=== PATIENT | male | born 1990 | race Two or more races ===

== ENCOUNTER 2019-05-14 20:52 | Inpatient (IN) | payer MEDICAID ==
[~2019-05-14] VITALS: Ht 165.1 cm; Wt 67.5 kg
[2019-05-14] MEDS ORDERED: ETOMIDATE (2MG/ML) 20ML VIAL IV ONE ×2 (21:00→21:15)
[2019-05-14] MEDS ORDERED: SUCCINYLCHOLINE CHLORIDE 20 MG/ML 10ML VIAL IV ONE ×2 (21:00→21:15)
[2019-05-14] MEDS ORDERED: PROPOFOL 100 ML IV ONE (21:10)
[2019-05-14] MEDS ORDERED: VANCOMYCIN PER PHARMACY 0 MG IV SCH (21:15)
[2019-05-14] MEDS ORDERED: MIDAZOLAM HCL 5 MG/ML-1ML VIAL IV ONE (21:15)
[2019-05-14] MEDS ORDERED: ACETAMINOPHEN 650 MG RECT SUPP PR ONE (21:15)
[2019-05-14] MEDS ORDERED: PIPERACILLIN-TAZOB 3.375GM 100 ML IV ONE (21:15)
[2019-05-14] MEDS ORDERED: MIDAZOLAM HCL 5 MG/ML-1ML VIAL ONE (21:17)
[2019-05-14] MEDS: PROPOFOL 100 ML IV SCH (21:24)
[2019-05-14] MEDS: NOREPINEPHRINE 8 MG/250ML KIT 250 ML IV SCH (21:30)
[2019-05-14 21:31] LABS: Basophils # (auto) 0 uL; Basophils % (auto) 0.1 % (0.0-2.0); Eosinophils # (auto) 0 uL; Eosinophils % (auto) 0.1 % (0.0-7.0); Hematocrit 49.7 % (41.0-53.0); Hemoglobin 16.4 g/dL (13.5-17.5); Lymphocytes # (auto) 0.8 uL; Lymphocytes % (auto) 5.7 % (10.0-50.0); Mean Corpuscular Hemoglobin 33.2 pg (28.0-32.0); Mean Corpuscular Hgb Conc. 33.1 g/dL (32.0-36.0); Mean Corpuscular Volume 100.4 fL (80.0-100.0); Monocytes # (auto) 0.4 uL; Monocytes % (auto) 2.7 % (0.0-12.0); Neutrophils # (auto) 12.9 uL; Neutrophils % (auto) 91.4 % (37.0-80.0); Nucleated Red Blood Cells % 0.1 %; Platelet Count (auto) 153 10^3/uL (140-450); Red Blood Cells 4.95 10^6/uL (4.5-5.90); Red Cell Distribution Width 13.3 % (11.8-14.3); White Blood Cell 14.1 10^3/uL (4.4-10.8)
[2019-05-14] MEDS ORDERED: VANCOMYCIN 1GM/250ML 250 ML IV ONE (21:45)
[2019-05-14 21:46] LABS: INR 1.24 (0.9-1.15)
[2019-05-14 21:51] LABS: Calcium 6.1 mg/dL (8.5-10.1); Potassium 4.7 mmol/L (3.5-5.1)
[2019-05-14 21:55] LABS: Lactic Acid w/Reflex 3.5 mmol/L (0.4-2.0)
[2019-05-14 22:00] VITALS: BP 115/63
[2019-05-14] MEDS ORDERED: SODIUM CHLORIDE 0.9% 3,000 ML IV ONE (22:00)
[2019-05-14 22:09] LABS: Amphetamine Screen, Urine POSITIVE (NEGATIVE); Barbiturate Scree,Urine NEGATIVE (NEGATIVE); Benzodiazephine Screen, Urine NEGATIVE (NEGATIVE); Cannabinoid Screen, Urine NEGATIVE (NEGATIVE); Cocaine Screen, Urine NEGATIVE (NEGATIVE); Opiate Scree,Urine NEGATIVE (NEGATIVE); Phencyclidine Screen, Urine NEGATIVE (NEGATIVE)
[2019-05-14] MEDS: MIDAZOLAM DRIP 50 mg/50mL 50 ML IV SCH (22:16)
[2019-05-14 22:18] LABS: Urine Amorphous Crystal FEW /hpf (None Seen); Urine Bacteria NONE SEEN /hpf (None Seen); Urine Blood 2+ /uL (Negative); Urine Specific Gravity 1.017 (1.001-1.035); Urine WBC 1 /hpf (0 - 3)
[2019-05-14] MEDS ORDERED: SODIUM CHLORIDE 0.9% 1,000 ML IV ONE ×2 (22:45→23:00)
[2019-05-14] MEDS ORDERED: MORPHINE SULF INJ 2 MG/ML SYRINGE 1ML IV PRN (23:00)
[2019-05-14] MEDS ORDERED: NITROGLYCERIN 0.4 MG SL TAB SL PRN (23:00)
[2019-05-14] MEDS ORDERED: SODIUM BICARBONATE 8.4 % INJ 50ML VIAL IV ONE (23:00)
[2019-05-14] MEDS ORDERED: ONDANSETRON HCL 4 MG/2 ML VIAL IV PRN (23:00)
[2019-05-14 23:13] LABS: Albumin 3.3 g/dL (3.4-5.0)
[2019-05-14 23:22] LABS: Bilirubin, Total 0.4 mg/dL (0.2-1.0); Total Protein 6.4 g/dL (6.4-8.2)
[2019-05-14 23:39] LABS: Bilirubin, Direct 0.2 mg/dL (0-0.2)
[2019-05-14] MEDS: D5W/SOD CHLO 0.9% 1,000 ML IV SCH (23:58)
[2019-05-15] VITALS (103 sets, daily range): BP systolic 95–136; BP diastolic 38–90
[2019-05-15] MEDS ORDERED: ASPirin 325 MG TAB PO ONE (00:15)
--- NOTE | 2019-05-15 00:21 | NUR ---
REPORT TAKEN FROM TIM ARMSTRONG
[2019-05-15] MEDS ORDERED: CALCIUM GLUC 4.65meq/50ml D5AE 50 ML IV ONE ×3 (00:45→16:30)
--- NOTE | 2019-05-15 00:45 | NUR ---
RT NOTE: PT TRANSPORTED TO ICU VIA AMBU BAG AND O2 TANK, MONITORS IN PLACE. PT PLACED BACK ON VENT WITHOUT INCIDENT. VENT PLUGGED INTO RED OUTLET WITH ALARMS SET AND AUDIBLE.
[2019-05-15] MEDS: MIDAZOLAM DRIP 50 mg/50mL 50 ML IV SCH (00:50)
[2019-05-15] MEDS: PROPOFOL 100 ML IV SCH (00:50)
--- NOTE | 2019-05-15 00:50 | NUR ---
INITIAL CONTACT ASSUMED CARE OF PATIENT PATIENT APPEARS TO BE RESTING IN BED COMFORTABLY IN SEMI-FOWLERS POSITION AT THIS TIME. PATIENT IS INTUBATED AND SEDATED ON PROPOFOL AT 50 AND VERSED AT 15. PIN POINT PUPILS, NOTED. CENTRAL LINE TO LEFT IJ. 20 G IV LFT UPPER ARM, 18 G IV TO RIGHT A/C, 14 G IV TO LEFT A/C, 20 G IV TO RIGHT WRIST. IV'S WERE FLUSHED W/NS, PATENT, INTACT AND ASYMPTOMATIC. PATIENT IS AFEBRILE. THORNTON CATHETER IN TACT AND DRAINING TO GRAVITY. NO S/S OF DISTRESS NOTED. VITAL SIGNS WITHIN NORMAL LIMITS. VENTILATOR PLUGGED INTO RED OUTLET PER VAP/PROTOCOL, AMBU BAG AT BEDSIDE. PATIENT IS IN FULL VIEW OF NURSES STATION SAFETY MAINTAINED, WILL CONTINUE TO MONITOR. NO FAMILY AT BEDSIDE
[2019-05-15] MEDS ORDERED: CLOPIDOGREL 300 MG TAB NG ONE (01:00)
[2019-05-15] MEDS ORDERED: SODIUM BICARBONATE 50ML VIAL 100 ML in D5W/SOD CHL 0.45% 1,000 ML IV SCH (01:00)
--- NOTE | 2019-05-15 02:08 | NUR ---
Visitors came to ER and stated possible name of patient as Marco Antonio Browning however (per hot car charger) doesn't know if that is his correct name or how to spell it. 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 Advised admitting to leave patient as VINCENZO FORRESTER until we can confirm identity.
[2019-05-15 02:42] LABS: Basophils # (auto) 0 uL; Basophils % (auto) 0.4 % (0.0-2.0); Eosinophils # (auto) 0 uL; Eosinophils % (auto) 0.3 % (0.0-7.0); Hematocrit 44.1 % (41.0-53.0); Hemoglobin 14.7 g/dL (13.5-17.5); Lymphocytes # (auto) 0.7 uL; Lymphocytes % (auto) 7.6 % (10.0-50.0); Mean Corpuscular Hemoglobin 33.1 pg (28.0-32.0); Mean Corpuscular Hgb Conc. 33.3 g/dL (32.0-36.0); Mean Corpuscular Volume 99.5 fL (80.0-100.0); Monocytes # (auto) 0.2 uL; Monocytes % (auto) 1.5 % (0.0-12.0); Neutrophils # (auto) 8.9 uL; Neutrophils % (auto) 90.2 % (37.0-80.0); Nucleated Red Blood Cells % 0.2 %; Platelet Count (auto) 94 10^3/uL (140-450); Red Blood Cells 4.43 10^6/uL (4.5-5.90); Red Cell Distribution Width 13.1 % (11.8-14.3); White Blood Cell 9.9 10^3/uL (4.4-10.8)
[2019-05-15 03:08] LABS: Albumin 2.7 g/dL (3.4-5.0); BUN/Creatinine Ratio 10.3; Potassium 4.5 mmol/L (3.5-5.1)
[2019-05-15 03:17] LABS: Bilirubin, Total 0.5 mg/dL (0.2-1.0); Total Protein 5.3 g/dL (6.4-8.2)
[2019-05-15 03:19] LABS: Calcium 5.7 mg/dL (8.5-10.1)
[2019-05-15] MEDS ORDERED: SODIUM BICARBONATE 8.4 % INJ 50ML VIAL IV ONE ×2 (03:39→04:45)
[2019-05-15 04:39] LABS: INR 1.24 (0.9-1.15); Partial Thromboplastin Time 29.1 sec (23.64-32.05)
[2019-05-15] MEDS: PIPERACILLIN-TAZOB 2.25GM 50 ML IV SCH ×3 (06:58→21:58)
--- NOTE | 2019-05-15 07:54 | NUR ---
Opening shift note: Report received from TIM Lamar. Patient with IVF -no sedation required. See Interventions for detailed assessment.
[2019-05-15] MEDS ORDERED: ENOXAPARIN SOD 100 MG/1 ML SYRINGE SC SCH (10:00)
[2019-05-15] MEDS ORDERED: CLOPIDOGREL BISULFATE 75 MG TAB NG SCH ×2 (10:00)
[2019-05-15] MEDS: D5W/SOD CHLO 0.9% 1,000 ML IV SCH (10:07)
--- NOTE | 2019-05-15 10:45 | NUR ---
Dr. Su at bedside: Order echo and EKG. Addendum: 05/15/19 at 1738 by Consuelo Villafuerte RN Possible cath in the future if patient stabilizes.
--- NOTE | 2019-05-15 11:00 | NUR ---
Dr. David at bedside: Spoke with patients co-workers at bedside- they updated him with some patient details, patient name and date of . Ordered another troponin, CVP line.
[2019-05-15] MEDS: ENOXAPARIN SOD 80 MG/0.8ML SYRINGE SC SCH (11:02)
--- NOTE | 2019-05-15 11:27 | NUR ---
EKG performed - patient ST.
--- NOTE | 2019-05-15 11:29 | NUR ---
Dr. Medina at bedside: Urine CR, NA, phos, albumin, D5W w/2 amps of bicarb at 150mls/hr ordered for patient.
--- NOTE | 2019-05-15 11:36 | NUR ---
Urine sent to lab. Signed: 05/15/19 at 1756 by Consuelo Villafuerte RN
[2019-05-15] MEDS ORDERED: SODIUM BICARBONATE 8.4% INJ 50ML SYRINGE ONE (11:40)
--- NOTE | 2019-05-15 11:40 | NUR ---
Dr. Peck at bedside: AM labs ordered, assessed patient at bedside.
[2019-05-15] MEDS: SODIUM BICARBONATE 50ML VIAL 100 ML in D5W 5% 1,000 ML IV SCH ×3 (12:00→21:57)
[2019-05-15 12:20] LABS: Protein, Urine 206.8 mg/dL (0.0-11.9)
--- NOTE | 2019-05-15 12:45 | NUR ---
Sacral pictures taken, bruise noted.
[2019-05-15 12:50] LABS: Magnesium 2.1 mg/dL (1.6-2.6); Phosphorus 4.4 mg/dL (2.5-4.90)
--- NOTE | 2019-05-15 12:54 | NUR ---
[facility] updated on patients status.
--- NOTE | 2019-05-15 13:40 | NUR ---
Spoke with patients sister: Yudelka Sandhujo Watkins The only history patient has is the whooping cough as a child.
--- NOTE | 2019-05-15 13:46 | NUR ---
Spoke with patients partner in [place]: Christian Zayas Updated her on patients poor prognosis, told her MD's are running more test to let her know more on patients condition. Partner is on her way from [place].
--- NOTE | 2019-05-15 14:52 | NUR ---
Dr. Fajardo at bedside- patient assessed.
[2019-05-15] MEDS: CLINDAMYCIN 600MG IV 50 ML IV SCH ×2 (15:25→21:39)
[2019-05-15] MEDS: ALBUMIN 25% 100 ML IV SCH ×2 (15:29→20:20)
--- NOTE | 2019-05-15 16:15 | NUR ---
Dr. Bowens at bedside: CXR, ABG in the am.
[2019-05-15] MEDS ORDERED: ALBUMIN 25% 100 ML IV ONE ×2 (16:26→16:30)
--- NOTE | 2019-05-15 17:59 | NUR ---
Dr. Coronado at bedside: Another CT head ordered for the morning at 0700.
--- NOTE | 2019-05-15 19:00 | NUR ---
OPENING SHIFT NOTE ASSUMED CARE, LAYING ON BED ON VENT WITH NO SEDATION, STILL NOT AWAKE AT THIS TIME, OGT CONNECTED TO LIS, THORNTON CATHETER DRAINING TO A PALE YELLOW URINE, SCD'S TO BOTH LEGS, BED IN LOWEST POSITION WITH SIDE RAILS UP, BED ALARM ON. WILL CONTINUE CARE.
--- NOTE | 2019-05-15 19:26 | NUR ---
Endorsed care to TIM Hyde.
[2019-05-15] MEDS: NOREPINEPHRINE 8 MG/250ML KIT 250 ML IV SCH (21:30)
--- NOTE | 2019-05-15 21:30 | NUR ---
FRIENDS AT BEDSIDE
[2019-05-15] MEDS: METOPROLOL TARTRATE 25 MG TAB PO SCH (21:58)
--- NOTE | 2019-05-15 22:00 | NUR ---
TEMP 100.6, COOLING MEASURES DONE.
--- NOTE | 2019-05-15 23:01 | NUR ---
PAGED THE HOSPITALIST FOR BLOOD CULTURE RESULT.
--- NOTE | 2019-05-15 23:15 | NUR ---
SARAH WHIPPLE CALLED BACK, UPDATED ON PT'S BLOOD CULTURE RESULT, NO NEW ORDERS MADE.
--- NOTE | 2019-05-15 23:25 | NUR ---
SEEMA DOTY) AT BEDSIDE
[2019-05-16] VITALS (85 sets, daily range): BP systolic 121–162; BP diastolic 70–103
--- NOTE | 2019-05-16 00:30 | NUR ---
RECEIVED A CALL FROM [facility] AND SPOKE WITH GERMAINE, UPDATED ON PT'S STATUS.
--- NOTE | 2019-05-16 01:15 | NUR ---
PT'S AND A FRIEND A T BEDSIDE, UPDATED ON PT'S STATUS. VERBALIZED UNDERSTANDING.
[2019-05-16] MEDS: PIPERACILLIN-TAZOB 2.25GM 50 ML IV SCH ×3 (03:21→22:54)
[2019-05-16] MEDS: ALBUMIN 25% 100 ML IV SCH (03:22)
[2019-05-16 04:16] LABS: Basophils # (auto) 0 uL; Eosinophils # (auto) 0 uL; Hematocrit 38.3 % (41.0-53.0); Lymphocytes # (auto) 0.4 uL
[2019-05-16 04:17] LABS: Basophils % (auto) 0.3 % (0.0-2.0); Eosinophils % (auto) 0.4 % (0.0-7.0); Lymphocytes % (auto) 4.5 % (10.0-50.0); Mean Corpuscular Hemoglobin 33.9 pg (28.0-32.0); Mean Corpuscular Hgb Conc. 34.1 g/dL (32.0-36.0); Mean Corpuscular Volume 99.3 fL (80.0-100.0); Monocytes # (auto) 0.2 uL; Monocytes % (auto) 2.4 % (0.0-12.0); Neutrophils % (auto) 92.4 % (37.0-80.0); Nucleated Red Blood Cells % 0.3 %; Platelet Count (auto) 65 10^3/uL (140-450); Red Blood Cells 3.85 10^6/uL (4.5-5.90); Red Cell Distribution Width 12.9 % (11.8-14.3); White Blood Cell 8.6 10^3/uL (4.4-10.8)
[2019-05-16 04:30] LABS: Potassium 3.9 mmol/L (3.5-5.1)
[2019-05-16 04:34] LABS: BUN/Creatinine Ratio 8.1; Calcium 7.1 mg/dL (8.5-10.1)
[2019-05-16] MEDS: SODIUM BICARBONATE 50ML VIAL 100 ML in D5W 5% 1,000 ML IV SCH ×3 (04:40→21:17)
[2019-05-16 04:42] LABS: Bilirubin, Total 1.2 mg/dL (0.2-1.0); Total Protein 5.6 g/dL (6.4-8.2)
[2019-05-16] MEDS: CLINDAMYCIN 600MG IV 50 ML IV SCH ×3 (05:55→22:54)
--- NOTE | 2019-05-16 06:32 | NUR ---
LATEST TEMP 99.5
--- NOTE | 2019-05-16 07:45 | NUR ---
ASSESS- PT. LYING IN BED ON VENT SIZE # 7.5 ET, 24 AT THE LIP, AC-14, TV-500, PEEP-5, FIO2-30%. LUNGS CLEAR CEHYENNE. INSPIRATORY AND EXPIRATORY. PT. HAS GAG/COUGH REFLEX. PUPILS 3 AND SLUGGISH CHEYENNE. OPENS EYES SPONTANEOUSLY, NO TRACKING. PT. IS ON NO SEDATION. MOVES ARMS SLIGHTLY CHEYENNE., NON-PURPOSEFUL. DOES NOT FOLLOW ANY COMMANDS. CHEYENNE. HAND MITTENS IN PLACE TO PREVENT PULLING OF TUBES AND LINES. OGT IN PLACE TO LIS WITH BILE DRAINAGE. ABD. SOFT, FLAT. BOWEL SOUNDS ALL FOUR QUADRANTS. F/C TO GRAVITY WITH CLEAR PALE YELLOW URINE. RADIAL PULSES STRONG, PALPABLE CHEYENNE. DORSALIS PEDAL PULSES STRONG, PALPABLE CHEYENNE. NO EDEMA. SCD'S CHEYENNE. LE. TLC LT. IJ INTACT WITH DSG. D/I. SKIN INTACT. RECTAL PROBE IN PLACE.
--- NOTE | 2019-05-16 09:45 | NUR ---
TECH AT BS FOR EEG. PT. IS ON NO SEDATION.
[2019-05-16] MEDS: ENOXAPARIN SOD 80 MG/0.8ML SYRINGE SC SCH (09:59)
[2019-05-16] MEDS ORDERED: ASPirin 81 mg TAB PO SCH (10:00)
[2019-05-16] MEDS: METOPROLOL TARTRATE 25 MG TAB PO SCH ×2 (10:00→23:10)
--- NOTE | 2019-05-16 10:10 | NUR ---
DR. COYNE Provider/Hospitalist at bedside. GAVE UPDATE ON PT.
--- NOTE | 2019-05-16 10:15 | NUR ---
DR. CADENA Provider/Hospitalist at bedside. GAVE UPDATE ON PT. NEW ORDERS RECEIVED.
--- NOTE | 2019-05-16 11:00 | NUR ---
DR. METZ Provider/Hospitalist at bedside. GAVE UPDATE ON PT. NEW ORDERS RECEIVED.
--- NOTE | 2019-05-16 11:30 | NUR ---
Family updated on pt status Family of SIGIFREDO AGUIRRE updated on patient's status and condition. All questions and concerns addressed. COUSIN verbalized understanding. VISITING AT THE BS.
--- NOTE | 2019-05-16 12:00 | NUR ---
WOUND CARE NOTE? [facility] DIAGNOSIS OF ACUTE RESPIRATORY FAILURE. PATIENT IS INTUBATED, NON RESPONSIVE. CURRENT STACEY SCORE IS 12. PATIENT'S FAMILY AT BEDSIDE. PATIENT FOUND DOWN ON THE FLOOR AT HOME FOR UNKNOWN TIME. PATIENT WAS NOTED TO HAVE AN INTACT ECCHYMOSIS TO LEFT BUTTOCK UPON ADMIT. BEDSIDE NURSE PHOTOGRAPHED WOUND FOR REFERENCE. ECCHYMOSIS MAY BE A TRAUMA BRUISE, OR MAY BE AN EARLY DTI, WHERE ONCE FULLY EVOLVED REPRESENTS A STAGE 3 OR 4 PRESSURE ULCER. SKIN/WOUND CARE PLAN IMPLEMENTED. RECOMMEND: FREQUENT TURN SCHEDULE Q2 HOURS, PRN CONDITION PERMITS, WITH PRESSURE REDISTRIBUTION USING PILLOWS/WEDGES, BID/PRN APPLICATION WITH MOISTURE BARRIER CREAM, OPTIFOAM GENTLE SACRAL DRESSING PREVENTATIVE, DIETARY CONSULT, SKIN/WOUND CARE PLAN, CONTINUED MONITORING BY WOUND CARE TEAM. Addendum: 05/16/19 at 1602 by Daniela Turcios RN Amended: Links added.
--- NOTE | 2019-05-16 13:15 | NUR ---
TECH AT BS FOR LIVER/ABD. US. PT. IS NPO.
--- NOTE | 2019-05-16 14:10 | NUR ---
EEG-ELECTROENCEPHALOGRAM COMPLETED ON 05/16/2019.
--- NOTE | 2019-05-16 14:25 | NUR ---
DR. FERRARO Provider/Hospitalist at bedside. TIM SILVA WAS INTERPERTING FOR DR. FERRARO WHO IS SPEAKING WITH PT'S. .
--- NOTE | 2019-05-16 15:00 | NUR ---
[facility] CALLED. GAVE UPDATE ON PT.
--- NOTE | 2019-05-16 15:20 | NUR ---
PT. NOTED TO HAVE BLISTER TO LT. OUTER EAR, NOT OPEN. ALSO BLISTER TO RT. LATERAL FT. TIMES TWO NOT OPEN. PHOTOGRAPHS TAKEN.
--- NOTE | 2019-05-16 16:00 | NUR ---
PT. TAKEN FOR CT HEAD WITHOUT CONTRAST VIA BED TO RADIOLOGY ON PORTABLE VENT WITH CARLOS RT, ON PLUG OVERWRAP MACHINE TENDER. VSS.
[2019-05-16] MEDS ORDERED: THIAMINE 100mg/ml INJ (200mg/2ml VIAL) IV ONE (16:15)
--- NOTE | 2019-05-16 16:15 | NUR ---
PT. RETURNED FROM CT. RT CARLOS PLACED PT. BACK ON VENT, ATTACHED TO COMPUTER EQUIPMENT INSTALLER. INFORMED DR. FERRARO IN UNIT THAT CT HEAD WAS DONE AND IMAGES AVAILABLE TO LOOK AT.
--- NOTE | 2019-05-16 17:00 | NUR ---
VISITING AT THE BS.
--- NOTE | 2019-05-16 17:25 | NUR ---
SPOKE WITH AUTOMATION ENGINEERING MANAGER RADIOLOGIST AND PT. IS POSITIVE FOR BLEED IN BRAIN FROM CT SCAN DONE PREVIOUSLY THIS AFTERNOON. WILL CALL DR. FERRARO WHEN REPORT IS RELEASED.
--- NOTE | 2019-05-16 17:50 | NUR ---
DR. FERRARO CALLED WITH ABNORMAL CT HEAD RESULTS BY TIM DIMAS. PT. HAS BRAIN BLEED IN MULTIPLE AREAS.
[2019-05-16 18:36] LABS: Cholesterol 101 mg/dL (< 200); HDL Cholesterol 26 mg/dL (40-59); LDL Cholesterol 52 mg/dL (< 100); Triglycerides 208 mg/dL (< 150)
--- NOTE | 2019-05-16 19:45 | NUR ---
Opening Shift Note Assumed care of patient, lying on bed with eyes opened spontaneously, stared at the ceiling, no tracking or eyes contact. Both arms on mittens, moved spontaneously, flexion to the chest. Extremities muscles rigid. Breathing on ETT with AC mode ventilator, synchronized, nonlabored, No S/S of distress/SOB or pain, strong occasional coughing. TLC at left IJ, mild oozing at the site, Tegaderm slightly peeling off, will change d/s later. CVP monitored. OGT in place, connected to LIS, bile drainages with mixed coffee ground color in the tubing. Saline locks at left arm x2, CDI sites, flushed well. Galvan's catheter hung to gravity, clear pale yellowish urine in the tubing. Bed in low position, all alarms are audible, fall and safety precaution in place. SCD to both legs. Untact blisters x3 at left foot noted. Both legs off loaded, on pillows. No family at bedside at this time, will continue to monitor for changes Q1hr and PRN.
--- NOTE | 2019-05-16 20:20 | NUR ---
Elimination Pt incontinent with moderate amount pasty of black/ yellowish stool. Noted skin tear at left buttock. Galvan's cath care, elise joann, elise rectal care done. Re-position Pt to prevent pressure ulcer. Continue care.
[2019-05-16] MEDS: PROPOFOL 100 ML IV SCH (21:03)
[2019-05-16] MEDS: NOREPINEPHRINE 8 MG/250ML KIT 250 ML IV SCH (21:30)
--- NOTE | 2019-05-16 21:55 | NUR ---
[facility] staff ; Finn, came for F/U on the case. After reviewed the case, he reported that Pt is not a candidate now due to high Cr level of 7.44 and still positive brain functions (not a declare brain case).
[2019-05-16] MEDS: MIDAZOLAM DRIP 50 mg/50mL 50 ML IV SCH (21:56)
[2019-05-16] MEDS: ATORVASTATIN 20 MG TAB PO SCH (22:53)
[2019-05-17] VITALS (83 sets, daily range): BP systolic 109–174; BP diastolic 71–114
--- NOTE | 2019-05-17 02:53 | NUR ---
Hypertension, coffee ground in OGT BP elevated 150-170's / 90's, HR 70's, EKG SR. Breathing stable with ventilator AC mode. Pt opened his eyes spontaneously, stared at the ceiling, both arms flexion and moved to the chest area constantly. Coffee ground with small clots noted in the OGT with no antacid medicine. Paged hospitalist.
[2019-05-17] MEDS: PIPERACILLIN-TAZOB 2.25GM 50 ML IV SCH ×3 (05:32→21:45)
[2019-05-17] MEDS: SODIUM BICARBONATE 50ML VIAL 100 ML in D5W 5% 1,000 ML IV SCH (05:32)
[2019-05-17] MEDS: CLINDAMYCIN 600MG IV 50 ML IV SCH (05:32)
--- NOTE | 2019-05-17 05:45 | NUR ---
Elimination/ am care Pt passed small to moderate pasty black stool. Delmi rectal care done. Z-guard applied. skin tear d/s done, a-guard applied. Cleaned the hair with shampoo cap, and sir dry. Mouth care done. Noted small amount of bloody saliva. Continue care.
--- NOTE | 2019-05-17 06:05 | NUR ---
TLC d/s changed Tegaderm at TLC left IJ slowly peeling off. D/S changed with sterile technique. Noted small skin tear under Tegaderm. Continue care.
--- NOTE | 2019-05-17 06:10 | NUR ---
IV removal Saline lock at right wrist DC'd with sterile technique, catheter fully intact. Pressure dressing applied to site. Continue care.
--- NOTE | 2019-05-17 07:30 | NUR ---
ASSESS- PT. LYING IN BED ON VENT SIZE #7.5 ET, 24 AT THE LIP, AC-14, TV-500, PEEP-5, FIO2-30%. LUNGS CLEAR CHEYENNE. INSPIRATORY AND EXPIRATORY. PT. HAS GAG/COUGH REFLEX. PUPILS 4 AND BRISK CHEYENNE. EYES OPEN SPONTANEOUSLY, NO TRACKING. NO SEDATION. PT. IS MOVING ARMS CHEYENNE. AND FT. CHEYENNE., NON-PURPOSEFUL. DOES NOT FOLLOW ANY COMMANDS. PT. IS VERY RESTLESS, ANXIOUS. RR 30'S. OGT IN PLACE TO LIS WITH LT. BROWN DRAINAGE. ABD. SOFT, FLAT. BOWEL SOUNDS HYPOACTIVE ALL FOUR QUADRANTS. F/C TO GRAVITY WITH CLEAR YELLOW URINE. TLC LT. IJ INTACT WITH DSG. D/I WITH CVP TO DISTAL PORT, ZEROED. RADIAL PULSES STRONG, PALPABLE CHEYENNE. DORSALIS PEDAL PULSES STRONG, PALPABLE CHEYENNE. SCD'S CHEYENNE. LE. RECTAL PROBE IN PLACE. CHEYENNE. HAND MITTENS IN PLACE TO PREVENT PULLING OF TUBES. LT. OUTER EAR WITH CLOSED BLISTER OPEN TO AIR. RT. LATERAL FT. WITH 2 BLISTERS INTACT OPEN TO AIR. RT. HEEL WITH CLOSED BLISTER OPEN TO AIR. LT. BUTTOCK WITH SKIN TEAR WITH TRIAD CREAM OPEN TO AIR.
--- NOTE | 2019-05-17 07:40 | NUR ---
PT. IS VERY RESTLESS AND ANXIOUS, COUGHING CONTINUOUSLY ON THE VENT. RR 30'S, HR 100'S TO ONE TEENS. SBP 150'S-170. PT. IS DIAPHORETIC. STARTED PT. ON PROPOFOL GTT.
[2019-05-17] MEDS: PROPOFOL 100 ML IV SCH ×3 (07:41→15:23)
[2019-05-17 08:14] LABS: Basophils # (auto) 0 uL; Eosinophils # (auto) 0.1 uL; Lymphocytes # (auto) 0.5 uL; Monocytes # (auto) 0.6 uL; Platelet Count (auto) 63 10^3/uL (140-450); Red Cell Distribution Width 12.5 % (11.8-14.3)
[2019-05-17 08:17] LABS: Basophils % (auto) 0.3 % (0.0-2.0); Eosinophils % (auto) 0.8 % (0.0-7.0); Hematocrit 30.6 % (41.0-53.0); Hemoglobin 10.8 g/dL (13.5-17.5); Lymphocytes % (auto) 5.2 % (10.0-50.0); Mean Corpuscular Hgb Conc. 35.1 g/dL (32.0-36.0); Mean Corpuscular Volume 96.8 fL (80.0-100.0); Neutrophils # (auto) 7.9 uL; Neutrophils % (auto) 86.7 % (37.0-80.0); Red Blood Cells 3.16 10^6/uL (4.5-5.90); White Blood Cell 9.1 10^3/uL (4.4-10.8)
--- NOTE | 2019-05-17 08:20 | NUR ---
PT.'S RR INCREASED TO THE 50'S-60'S, VENT ALARMING, PT. COUGHING CONSTANTLY. HR INCREASED TO THE ONE TEENS, SBP 140'S. PAGED RT TO COME TO BS. PT. CURRENTLY ON PROPOFOL GTT. AND RESTARTED PT. ON VERSED GTT. PT. IS DIAPHORETIC AND RESTLESS, DOES NOT FOLLOW ANY COMMANDS.
--- NOTE | 2019-05-17 08:30 | NUR ---
Respiratory note: PAGED TO ROOM. TIM WILSON AT BEDSIDE UPON ARRIVAL. PT TACHYPNEIC AND DIAPHORETIC. SUCTIONED SEVERAL MODERATE, THICK, BROWNISH RED MUCOUS PLUGS WITH LAVAGE. RN SEDATED PT/ AND RR DECREASED TO THE 20'S. SPO2 REMAINED STABLE.
--- NOTE | 2019-05-17 08:30 | NUR ---
IV removal IV DC'd with sterile technique, catheter fully intact. Pressure dressing applied to site. Patient tolerated procedure well. Discharged with aftercare instructions per MD. NOTE: IV LAC LEAKING BLOOD ONTO LINENS AND PT'S. GOWN. APPLIED COBAN TO SITE TO STOP BLEEDING.
[2019-05-17 08:45] LABS: Bilirubin, Total 1.1 mg/dL (0.2-1.0)
--- NOTE | 2019-05-17 08:45 | NUR ---
PT'S. RR DECREASED TO THE 20'S, NO LONGER RESTLESS. HR DECREASED TO SR. SBP DECREASED TO THE 120'S. MONITORING PT. INFORMED DR. METZ THAT PT. HAD TO BE RESEDATED DUE TO INCREASED RR AND VSS CHANGE.
[2019-05-17 08:47] LABS: BUN/Creatinine Ratio 8.4
[2019-05-17 08:49] LABS: Potassium 2.6 mmol/L (3.5-5.1)
[2019-05-17 08:50] LABS: Calcium 5.2 mg/dL (8.5-10.1)
--- NOTE | 2019-05-17 08:50 | NUR ---
Called/paged Dr. METZ called re: . Waiting for call back. Continue care.
--- NOTE | 2019-05-17 08:55 | NUR ---
returned call Dr. METZ returned call, updated on patient status and reason for call, orders received. Continue care.
[2019-05-17] MEDS ORDERED: POTASSIUM CHLORIDE 40 MEQ, LIDOCAINE 1% (LOCAL ANESTH.) 4 ML in SODIUM CHL 0.9% 100 ML IV ONE (09:00)
[2019-05-17] MEDS ORDERED: CALCIUM GLUC 4.65meq/50ml D5AE 50 ML IV ONE (09:00)
[2019-05-17] MEDS: MIDAZOLAM DRIP 50 mg/50mL 50 ML IV SCH ×5 (09:15→23:48)
[2019-05-17] MEDS: METOPROLOL TARTRATE 25 MG TAB PO SCH ×2 (09:43→22:00)
[2019-05-17] MEDS ORDERED: ASPirin 81 mg TAB PO SCH (10:00)
--- NOTE | 2019-05-17 10:00 | NUR ---
PT. HAD SM. LOOSE GREEN/BLACK STOOL. JAMILAH CARE DONE AND LINENS AND GOWN CHANGED.
--- NOTE | 2019-05-17 10:30 | NUR ---
FRIEND BROUGHT PT'S. CELL PHONE. GAVE TO PT'S. .
--- NOTE | 2019-05-17 10:45 | NUR ---
DR. METZ Provider/Hospitalist at bedside. GAVE UPDATE ON PT. NEW ORDERS RECEIVED.
--- NOTE | 2019-05-17 10:50 | NUR ---
DR. COYNE Provider/Hospitalist at bedside. GAVE UPDATE ON PT.
--- NOTE | 2019-05-17 10:50 | NUR ---
GAVE PT'S. LETTERS FOR PT'S. MOM AND SISTER TO GET EMERGENCY VISA FROM [place] TO VISIT, SIGNED BY DR. METZ.
--- NOTE | 2019-05-17 10:55 | NUR ---
DR. FERRARO Provider/Hospitalist at bedside. GAVE UPDATE ON PT. MET WITH PT'S. AND FRIEND AND HAD TIM CHANEL VICE PRESIDENT QUALITY IMPROVEMENT TO GIVE CT HEAD RESULTS.
[2019-05-17] MEDS ORDERED: cefTRIAXone 1GM/50ML D5W 50 ML IV ONE (11:00)
--- NOTE | 2019-05-17 11:10 | NUR ---
NUTRITION CONSULT/ASSESSMENT NOTES Please refer to link notes of nutrition screen form filed under the intervention section of the plan of care for further details. Est. Needs: 1500 kcal to 1900 kcal (25-30 kcal/kgBW), 60 gms to 76 gms pro (0.8-1.0 gms/kgBW). Will continue to monitor pertinent labs and reassess nutrient need prn Thank you for this consult. Addendum: 05/17/19 at [address] Amended: Links added.
[2019-05-17] MEDS ORDERED: PANTOPRAZOLE 40 MG/10 ML VIAL INJ IV ONE (11:15)
[2019-05-17] MEDS ORDERED: PIPERACILLIN-TAZOB 3.375GM 100 ML IV SCH (12:00)
--- NOTE | 2019-05-17 12:00 | NUR ---
PT. STARTING TO HAVE DECORTICATE POSTURING WITH ARMS AND FEET GOING INWARD. PT. HAS GAG/COUGH REFLEX. PUPILS 4 AND BRISK CHEYENNE. EYES OPEN SPONTANEOUSLY, NO TRACKING. MOVES ARMS AND FT. CHEYENNE., NON-PURPOSEFUL. DOES NOT FOLLOW ANY COMMANDS. PT. IS SEDATED WITH VERSED GTT. AND PROPOFOL GTT.
[2019-05-17] MEDS: FOLIC ACID 1 MG, MULTIPLE VITAMIN 10 ML, MAGNESIUM SULF SDV 50% 8 MEQ, THIAMINE INJ 100... INJ SCH ×5 (12:03)
[2019-05-17] MEDS: SOD CHL 0.45% 1,000 ML IV SCH ×2 (12:15→23:47)
[2019-05-17] MEDS: FREE WATER GT SCH ×3 (14:00→22:24)
--- NOTE | 2019-05-17 14:00 | NUR ---
HR DECREASED TO THE MID 50'S, SB. TITRATING PROPOFOL GTT. DOWN. MONITORING VSS.
--- NOTE | 2019-05-17 15:00 | NUR ---
FAMILY VISITING AT THE .
[2019-05-17 15:36] LABS: Calcium 6.8 mg/dL (8.5-10.1); Potassium 3.3 mmol/L (3.5-5.1)
--- NOTE | 2019-05-17 15:42 | NUR ---
K LEVEL 3.3 FROM 1500 LAB DRAW TODAY. SPOKE WITH DR. METZ AND NEW ORDER RECEIVED FOR 20 MEQ. KCL RIDER.
[2019-05-17] MEDS ORDERED: POTASSIUM CHL 20MEQ/100ML 100 ML IV ONE (15:45)
--- NOTE | 2019-05-17 17:00 | NUR ---
FAMILY AND FRIENDS HAVE BEEN VISITING AT THE BS.
--- NOTE | 2019-05-17 18:00 | NUR ---
HR DECREASED TO THE LOW 50'S SB WITH PAC'S. TITRATED PROPOFOL GTT. OFF.
--- NOTE | 2019-05-17 18:45 | NUR ---
RECTAL TEMP 100.4. REMOVED SHEET FROM PT. PLACED ICE PACKS CHEYENNE. AXILLA.
--- NOTE | 2019-05-17 19:30 | NUR ---
Opening Shift Note Assumed care of patient, lying on bed sedate, intubated. Breathing on ETT and ventilator AC mode, synchronized, nonlabored, No S/S of distress/SOB or pain. OGT clamped, positive placement. TLC at left IJ, Tegaderm peeling off, will re-dressing. Galvan's catheter hung to gravity with clear yellowish urine. Bed in low position, all alarms are audible, fall and safety precaution in place. SCD to both legs. No family at bedside at this time, will continue to monitor for changes Q1hr and PRN.
[2019-05-17] MEDS: ACETAMINOPHEN 325 MG TAB PO PRN (20:01)
--- NOTE | 2019-05-17 20:05 | NUR ---
Fever Rectal temp of 101.1, HR 56, other v/s stable. Tylenol given as MD order. Cooling measures on. Continue monitoring.
--- NOTE | 2019-05-17 21:13 | NUR ---
Elimination/ skin Pt passed a moderate amount of pasty black/ yellowish stool. Delmi area cleaned. Skin tear at left buttock d/s with NS and covered with Optifoam gentle. Z-guard applied. Re-position to prevent pressure ulcer. Mouth care done. Blister at left ear intact. Blisters x3 at left foot intact, will get Akash's boots, both legs on SCD and pillows to off load. Continue care.
[2019-05-17] MEDS: NOREPINEPHRINE 8 MG/250ML KIT 250 ML IV SCH (21:30)
[2019-05-17] MEDS: ATORVASTATIN 20 MG TAB PO SCH (21:45)
--- NOTE | 2019-05-17 23:30 | NUR ---
Elimination / Patient bathe/linen change Pt passed a large amount of loose/ watery black greenish stool. No foul smell. Delmi area cleaned, z- guard applied. Patient given partial bath with CHG wipes. Skin integrity assessed for any changes, no new changes. Partial linens changed. Patient repositioned to prevent pressure ulcer. Continue care.
[2019-05-18] VITALS (104 sets, daily range): BP systolic 119–157; BP diastolic 73–106
[2019-05-18] MEDS: PROPOFOL 100 ML IV SCH ×3 (01:47→16:42)
[2019-05-18] MEDS: FREE WATER GT SCH ×6 (02:59→21:44)
[2019-05-18] MEDS: MIDAZOLAM DRIP 50 mg/50mL 50 ML IV SCH ×4 (04:18→21:04)
--- NOTE | 2019-05-18 04:30 | NUR ---
Elimination Pt passed a moderate amount of watery black/ greenish stool. Delmi rectal cleaned, z-guard applied. Optifoam at left upper buttock intact. Perineal and Galvan's cath care done, z-guard applied. Partial bathe done with CHG wipes. Partial linens changed. Re-positioned to prevent pressure ulcer. Continue care.
[2019-05-18 04:54] LABS: Basophils # (auto) 0 uL; Basophils % (auto) 0.3 % (0.0-2.0); Eosinophils # (auto) 0.3 uL; Eosinophils % (auto) 2.6 % (0.0-7.0); Hematocrit 38.3 % (41.0-53.0); Lymphocytes # (auto) 0.8 uL; Lymphocytes % (auto) 8.6 % (10.0-50.0); Mean Corpuscular Hemoglobin 33.1 pg (28.0-32.0); Mean Corpuscular Volume 97.3 fL (80.0-100.0); Monocytes # (auto) 1.1 uL; Monocytes % (auto) 11.8 % (0.0-12.0); Neutrophils # (auto) 7.4 uL; Neutrophils % (auto) 76.7 % (37.0-80.0); Platelet Count (auto) 84 10^3/uL (140-450); Red Blood Cells 3.93 10^6/uL (4.5-5.90); Red Cell Distribution Width 12.8 % (11.8-14.3); White Blood Cell 9.7 10^3/uL (4.4-10.8)
[2019-05-18 05:09] LABS: Albumin 2.5 g/dL (3.4-5.0); Calcium 7.3 mg/dL (8.5-10.1); Potassium 3.9 mmol/L (3.5-5.1)
[2019-05-18] MEDS: PIPERACILLIN-TAZOB 2.25GM 50 ML IV SCH ×3 (05:17→21:44)
[2019-05-18 05:18] LABS: BUN/Creatinine Ratio 8.7; Bilirubin, Total 1.1 mg/dL (0.2-1.0); Total Protein 5.4 g/dL (6.4-8.2)
--- NOTE | 2019-05-18 06:42 | NUR ---
Respiratory note: RECEIVED PATIENT ON V15 ESPRIT VENT ORALLY INTUBATED WITH A 7.5 ETT SECURED VIA MIKE AT THE 24CM MARKING AT THE LIP, AND MECHANICALLY VENTILATED WITH THE CHARTED SETTINGS. SPO2 100%, LUNG SOUNDS CLEAR T/O, SCANT AMOUNT OF LIGHT RED SECRETIONS WHEN SUCTIONED. SKIN IS WARM/DRY TO THE TOUCH AND IS INTACT NEAR MIKE SITE. THERE IS AN OGT IN PLACE AND SECURED TO THE ETT, A TRIPLE LUMEN CENTRAL LINE IS PLACED IN THE LEFT IJ, +1 PITTING EDEMA NOTED IN BILATERAL UPPER EXTREMITIES, NO EDEMA NOTED IN LOWER EXTREMITIES. LEG SEQUENTIALS IN PLACE AND OPERATIONAL. NO NEW AM CXR TO ASSESS. PATIENT IS UNRESPONSIVE TO BOTH VERBAL/TACTILE STIMULI AND IS SEDATED ON VERSED AND PROPOFOL DRIPS. HE IS RESTING COMFORTABLY AND TOLERATING VENT WELL, NO CHANGES MADE. VENT PLUGGED INTO RED OUTLET AND ALL ALARMS ARE SET AND AUDIBLE. WILL CONTINUE TO ASSESS PATIENT WELL VENTILATOR FUNCTION.
--- NOTE | 2019-05-18 07:00 | NUR ---
Respiratory note: CXR ASSESSED AND IT SHOWS ETT IN SATISFACTORY POSITION SITTING APPROX 4CM ABOVE THE JACINTA. NO INDICATION TO ADJUST TUBE.
--- NOTE | 2019-05-18 08:00 | NUR ---
OPENING NOTE Received patient on mechanical ventilator sedated on Versed at 15mg and Diprivan at 25mcg. Patient does not open eyes to verbal/tactile stimuli, does not follow simple commands, pupils reactive to light bilaterally and positive gag/cough reflex. Sinus bradycardia in the 50's on bedside monitor, pulses palpable on upper/lower extremities and no edema observed. OG tube checked and verified via air bolus: clamped. Abdomen soft, nontender, non distended, bowel sounds present in all quadrants with last bowel movement per NOC nurse 05/18/2019. Galvan catheter draining to gravity clear yellow urine. IV to the left IJ (TLC): good blood return and flushes easily infusing 0.45 NS at 75ml/hr and measuring CVP 6-12. Blister to the left ear lobe, right foot X2, right heel with melvin boot to the right leg. Left buttock skin tear with Optifoam dressing clean, dry and intact. SCD's on. Call light with in reach and bed at lowest position. Will continue to monitor patient closely.
[2019-05-18] MEDS ORDERED: cefTRIAXone 1GM/50ML D5W 50 ML IV SCH (09:00)
[2019-05-18] MEDS: METOPROLOL TARTRATE 25 MG TAB PO SCH ×2 (09:32→21:45)
[2019-05-18] MEDS: PANTOPRAZOLE 40 MG/10 ML VIAL INJ IV SCH (10:00)
--- NOTE | 2019-05-18 10:25 | NUR ---
ELIMINATION Patient had a small loose brown, yellowish green bowel movement, elise care provided and Z-guard applied. Partial linen change done with the assistance of Amos DUMONT. Patient tolerated well. Will continue to monitor patient closely.
--- NOTE | 2019-05-18 11:25 | NUR ---
MD Dr. Peck at bedside updated on patient condition with no new orders. MD spoke to patients family and gave them and updated. MD explained that patients prognosis is poor. Questions/concerns answered by .
--- NOTE | 2019-05-18 12:00 | NUR ---
MD Dr. Medina at bedside updated on patient condition with new orders, MD to input into system. Will carry out orders per MD.
[2019-05-18] MEDS: FOLIC ACID 1 MG, MULTIPLE VITAMIN 10 ML, MAGNESIUM SULF SDV 50% 8 MEQ, THIAMINE INJ 100... INJ SCH ×5 (12:18)
[2019-05-18] MEDS: DOPamine 1600MCG/ML D5W 250 ML IV SCH (12:33)
--- NOTE | 2019-05-18 13:50 | NUR ---
MD Dr. Fajardo at bedside updated on patient condition with no new orders. states " Liver enzymes are getting better will be signing off case if needed re consult."
[2019-05-18] MEDS: SODIUM BICARBONATE 50ML VIAL 50 ML in D5W/SOD CHL 0.45% 1,000 ML IV SCH ×2 (14:04→21:46)
[2019-05-18 14:32] LABS: Hepatitis B Surface Antigen Negative (Negative); Hepatitis C Antibody Negative (Negative)
[2019-05-18] MEDS: NOREPINEPHRINE 8 MG/250ML KIT 250 ML IV SCH (21:30)
[2019-05-18] MEDS: ATORVASTATIN 20 MG TAB PO SCH (21:45)
[2019-05-19] VITALS (90 sets, daily range): BP systolic 124–178; BP diastolic 65–103
--- NOTE | 2019-05-19 02:00 | NUR ---
Versed drip increased Patient was having deep abdominal breathing in high 20's. Increased sedation.
[2019-05-19] MEDS: FREE WATER GT SCH ×6 (02:15→22:24)
[2019-05-19] MEDS: MIDAZOLAM DRIP 50 mg/50mL 50 ML IV SCH ×5 (02:39→22:52)
--- NOTE | 2019-05-19 03:30 | NUR ---
Patient bathe/linen change Patient given complete bath. Skin integrity assessed for any changes. Linens changed. Patient repositioned for comfort.
[2019-05-19] MEDS: PIPERACILLIN-TAZOB 2.25GM 50 ML IV SCH ×3 (05:33→22:24)
[2019-05-19] MEDS: SODIUM BICARBONATE 50ML VIAL 50 ML in D5W/SOD CHL 0.45% 1,000 ML IV SCH (06:34)
--- NOTE | 2019-05-19 07:35 | NUR ---
MD Dr. Coronado at bedside updated on patient condition with no new orders. Will continue to monitor patient closely.
[2019-05-19 07:51] LABS: Basophils # (auto) 0 uL; Basophils % (auto) 0.2 % (0.0-2.0); Eosinophils # (auto) 0.2 uL; Eosinophils % (auto) 1.9 % (0.0-7.0); Hematocrit 38.1 % (41.0-53.0); Hemoglobin 13.1 g/dL (13.5-17.5); Lymphocytes # (auto) 0.7 uL; Lymphocytes % (auto) 6.6 % (10.0-50.0); Mean Corpuscular Hemoglobin 33.1 pg (28.0-32.0); Mean Corpuscular Hgb Conc. 34.3 g/dL (32.0-36.0); Mean Corpuscular Volume 96.5 fL (80.0-100.0); Monocytes # (auto) 1.9 uL; Monocytes % (auto) 17.4 % (0.0-12.0); Neutrophils # (auto) 8.2 uL; Neutrophils % (auto) 73.9 % (37.0-80.0); Platelet Count (auto) 100 10^3/uL (140-450); Red Blood Cells 3.95 10^6/uL (4.5-5.90); Red Cell Distribution Width 12.7 % (11.8-14.3); White Blood Cell 11.1 10^3/uL (4.4-10.8)
[2019-05-19 08:00] LABS: Albumin 2.5 g/dL (3.4-5.0); Calcium 7.3 mg/dL (8.5-10.1); Potassium 3.7 mmol/L (3.5-5.1)
[2019-05-19 08:03] LABS: Bilirubin, Total 0.9 mg/dL (0.2-1.0); Total Protein 5.6 g/dL (6.4-8.2)
[2019-05-19] MEDS: METOPROLOL TARTRATE 25 MG TAB PO SCH ×2 (10:00→22:00)
[2019-05-19] MEDS: PANTOPRAZOLE 40 MG/10 ML VIAL INJ IV SCH (10:39)
[2019-05-19] MEDS: D5W/SOD CHL 0.45% 1,000 ML IV SCH ×2 (12:00→22:31)
[2019-05-19] MEDS: DOPamine 1600MCG/ML D5W 250 ML IV SCH (12:00)
[2019-05-19] MEDS: PROPOFOL 100 ML IV SCH ×3 (12:30→23:36)
--- NOTE | 2019-05-19 12:30 | NUR ---
SEDATION Re-started Diprivan gtt secondary to patient having involuntary movements and heart rate jumping up to the 90's and increase blood pressure as well. Will continue to monitor patient.
[2019-05-19] MEDS: FOLIC ACID 1 MG, MULTIPLE VITAMIN 10 ML, MAGNESIUM SULF SDV 50% 8 MEQ, THIAMINE INJ 100... INJ SCH ×5 (12:47)
[2019-05-19] MEDS: CALCIUM ACETATE 667 MG CAP NG SCH ×2 (14:00→22:24)
--- NOTE | 2019-05-19 14:42 | NUR ---
Nutrition Follow-up Notes Wt.: 99.8 kg Pt's intubated sedated with no family by bedside. pt to have ANUP today per records. pt is currently NPO with no new diet orders per RN Est. Needs: 1500 kcal to 1900 kcal (25-30 kcal/kgBW), 60 gms to 76 gms pro (0.8-1.0 gms/kgBW). Will continue to monitor pertinent labs and reassess nutrient need prn Labs: BUN 76 H, CREAT 8.41 H, GLU 129 H, ALB 2.5 L. Skin: Kenrick scale 11, high risk pt with multiple skin tears and blisters per RN doc. refer to notes for details GI: Pt had 1 BM today per documentation liaison. PES: Increased nutrient needs r/t current chronic medical condition aeb intubated, sedated, ESRD for possible HD, sever hypoalbuminemia, NPO. Altered nutrition related lab values r/t current/chronic medical condition aeb hyperglycemia, hypernatremia, hypkalemia, hyperchloremia, elev.renal labs, LFTs, hyperbilirubinemia, hypocalcemia and severe hypoalbuminemia Will continue to monitor NPO status, skin status, pertinent labs and weight trend. F/u in 2 to 3 days. Rec.: 1.) If still NPO in next 48 hrs, consider alternate/EN support with formula choice of Nephro Carb Steady @ 40 ml/hr goal rate as tolerated if pt off propofol if pt's to start on HD tx when medically appropriate. 2.) If Albumin level continues trending down, on HD, consider Prostat 1 pkt BID. 3.) Consider daily Nephrovite and Asc acid 500 mgs BID. 4.) Advance gradually to oral diet when medically appropriate. 5.) Refer to RD for further nutrition educ. and weight monitoring upon discharge. 6.) Continue current plan of care.
--- NOTE | 2019-05-19 15:50 | NUR ---
ELIMINATION Patient had a bowel small formed stool, elise care provided. Will continue to monitor patient.
--- NOTE | 2019-05-19 18:50 | NUR ---
[facility] Kemar Dunlap regarding verification of patient status and life expectancy. No personal information given.
--- NOTE | 2019-05-19 19:15 | NUR ---
OPENING SHIFT RECEIVED REPORT FROM DAY SHIFT RN. ASSUMED CARE OF PATIENT. PATIENT IN BED INTUBATED AND SEDATED. ET TUBE 24CM AT THE LIP - AC 14/ TV 500/ FI02 30%/ PEEP + 5, POSITIVE GAG DURING SUCTION. LEFT UPPER ARM, LEFT INTRAJUGULAR TLC IV - CLEAN/DRY/INTACT. THORNTON HUNG TO GRAVITY ON BED RAIL. REPOSITIONED FOR COMFORT. BED IN LOWEST POSITION, SIDE RAILS UP X2, CALL LIGHT WITHIN REACH. WILL CONTINUE TO MONITOR.
[2019-05-19] MEDS: ATORVASTATIN 20 MG TAB PO SCH (22:23)
--- NOTE | 2019-05-19 23:00 | NUR ---
SEDATION PATIENT HAVING INVOLUNTARY MOVEMENTS AND BP IN THE 140'S SYSTOLIC. DIPRIVAN GTT INCREASED TO 35MCG. WILL CONTINUE TO MONITOR.
[2019-05-20] VITALS (103 sets, daily range): BP systolic 127–162; BP diastolic 76–97
--- NOTE | 2019-05-20 01:50 | NUR ---
SEDATION PATIENT CONTINUES TO HAVE INVOLUNTARY MOVEMENTS, BP SYSTOLIC IN THE 150S. DIPRIVAN GTT INCREASED TO 40 MCG. VERSED DECREASED TO 13MG. WILL CONTINUE TO MONITOR.
[2019-05-20] MEDS: FREE WATER GT SCH ×6 (02:00→22:23)
--- NOTE | 2019-05-20 02:00 | NUR ---
MORNING CARE PERFORMED MORNING CARE WITH CHG WHIPS AND WASH CLOTHS TO THE FACE. PARTIAL LINEN AND GOWN CHANGED. SKIN REASSESSED AT THIS TIME. ORAL AND THORNTON CARE PERFORMED. REPOSITIONED FOR COMFORT. BED IN LOWEST POSITION, SIDE RAILS UP X2. WILL CONTINUE TO MONITOR.
[2019-05-20] MEDS: MIDAZOLAM DRIP 50 mg/50mL 50 ML IV SCH ×4 (03:44→22:22)
[2019-05-20 04:24] LABS: Hematocrit 36.3 % (41.0-53.0); Hemoglobin 12.4 g/dL (13.5-17.5); Mean Corpuscular Hemoglobin 33.1 pg (28.0-32.0); Mean Corpuscular Hgb Conc. 34.1 g/dL (32.0-36.0); Mean Corpuscular Volume 97.1 fL (80.0-100.0); Platelet Count (auto) 108 10^3/uL (140-450); Red Blood Cells 3.74 10^6/uL (4.5-5.90); White Blood Cell 9.7 10^3/uL (4.4-10.8)
[2019-05-20 04:39] LABS: INR 1.06 (0.9-1.15); Partial Thromboplastin Time 30.5 sec (23.64-32.05)
[2019-05-20 04:50] LABS: Calcium 7.6 mg/dL (8.5-10.1); Potassium 3.3 mmol/L (3.5-5.1)
[2019-05-20 04:52] LABS: BUN/Creatinine Ratio 9.4
[2019-05-20 04:58] LABS: Basophils % (manual) 0 (0.0-2.0); Blast Cells 0; Metamyelocytes % 0; Myelocytes % 0; Promyelocytes % 0; Reactive Lymphocytes 0
--- NOTE | 2019-05-20 05:20 | NUR ---
HOSPITALIST PAGED HOSPITALIST, AWAITING CALL BACK.
--- NOTE | 2019-05-20 05:30 | NUR ---
HOSPITALIST HOSPITALIST MADE AWARE OF POTASSIUM - 3.3, GAVE ORDERS TO REPLACE WITH 20 MEQ K RIDDER. WILL CONTINUE TO MONITOR.
[2019-05-20] MEDS: PIPERACILLIN-TAZOB 2.25GM 50 ML IV SCH ×3 (05:34→22:23)
[2019-05-20] MEDS: PROPOFOL 100 ML IV SCH ×4 (05:55→22:41)
[2019-05-20] MEDS: CALCIUM ACETATE 667 MG CAP NG SCH ×3 (06:00→22:23)
[2019-05-20] MEDS ORDERED: POTASSIUM CHL 20MEQ/100ML 100 ML IV ONE ×2 (06:00→06:01)
--- NOTE | 2019-05-20 06:00 | NUR ---
SEDATION NO GAG PRESENT DURING SUCTION. DIPRIVAN GTT DECREASED TO 35 MCG. WILL CONTINUE TO MONITOR.
[2019-05-20 06:23] LABS: Band Neutrophils % (manual) 7; Eosinophils % (manual) 3 (0-7); Lymphocytes % (manual) 15 (10.0-50.0); Monocytes % (manual) 15 (0-12)
--- NOTE | 2019-05-20 07:20 | NUR ---
END OF SHIFT REPORT GIVEN TO DAY SHIFT RN. CARE ENDORSED.
--- NOTE | 2019-05-20 07:40 | NUR ---
MD Dr. Coronado at bedside updated on patient condition with no new orders received. Will continue to monitor patient closely.
[2019-05-20] MEDS: D5W/SOD CHL 0.45% 1,000 ML IV SCH ×2 (08:00→18:00)
--- NOTE | 2019-05-20 08:00 | NUR ---
OPENING NOTE Received patient on mechanical ventilator sedated on Versed at 13mg and Diprivan at 35mcg. Patient does not open eyes to verbal/tactile stimuli, does not follow simple commands, pupils reactive to light bilaterally and positive gag/cough reflex. Sinus bradycardia in the 50's on bedside monitor, pulses palpable on upper/lower extremities and no edema observed. OG tube checked and verified via air bolus: clamped. Abdomen soft, nontender, non distended, bowel sounds present in all quadrants with last bowel movement per NOC nurse 05/20/2019. Galvan catheter draining to gravity clear yellow urine. IV to the left IJ (TLC): good blood return and flushes easily infusing d50.45 NS at 100ml/hr and Dopamine at 1.5mcg/kg and measuring CVP 6-12. Blister to the left ear lobe, right foot X2, right heel with melvin boot to the right leg. Left buttock skin tear with Optifoam dressing clean, dry and intact. SCD's on. Call light with in reach and bed at lowest position. Will continue to monitor patient closely.
[2019-05-20] MEDS: NOREPINEPHRINE 8 MG/250ML KIT 250 ML IV SCH ×2 (09:50→21:30)
[2019-05-20] MEDS: METOPROLOL TARTRATE 25 MG TAB PO SCH ×2 (09:51→22:00)
[2019-05-20] MEDS: PANTOPRAZOLE 40 MG/10 ML VIAL INJ IV SCH (09:51)
--- NOTE | 2019-05-20 10:00 | NUR ---
CONSENT Consent for ANUP obtained after Miriam WHIPPLE spoke to .
--- NOTE | 2019-05-20 11:45 | NUR ---
MD Dr. Medina at bedside updated on patient condition with no new orders received. Will continue to monitor patient closely.
[2019-05-20] MEDS ORDERED: FOLIC ACID 1 MG, MULTIPLE VITAMIN 10 ML, THIAMINE INJ 100 MG in D5W/SOD CHL 0.45% 1,000 ML INJ SCH (12:00)
[2019-05-20] MEDS ORDERED: FOLIC ACID 1 MG, MULTIPLE VITAMIN 10 ML, THIAMINE INJ 100 MG in D5W/SOD CHL 0.45% 1,000 ML INJ ONE (12:00)
--- NOTE | 2019-05-20 12:00 | NUR ---
MD Dr. Miller at bedside updated on patient condition, aware of chest x-ray results with no new orders obtained. Will continue to monitor patient closely.
[2019-05-20] MEDS: DOPamine 1600MCG/ML D5W 250 ML IV SCH (12:06)
[2019-05-20 14:22] LABS: Albumin 2.4 g/dL (3.4-5.0); BUN/Creatinine Ratio 8.9; Calcium 7.8 mg/dL (8.5-10.1); Potassium 3.6 mmol/L (3.5-5.1)
[2019-05-20 15:00] LABS: Bilirubin, Total 0.5 mg/dL (0.2-1.0); Total Protein 5.6 g/dL (6.4-8.2)
--- NOTE | 2019-05-20 19:30 | NUR ---
Opening Note Received report on full code icu patient. Intubated and sedated on Propofol and versed. Does not open eyes but have a hyperactive aggressive cough when suctioned. SB 50's SBP 140's, on Dopamine at 1.5 fixed rate, CVP monitoring 5-6. OGT clamped. Galvan cath free of kinks draining to gravity. RT IJ TLC clean dry and intact. Blisters X2 to right foot with melvin boot. bed in lowest position and all fall and safety precautions in place. For more information see interventions. See iv spread sheet for gtts and their titrations.
--- NOTE | 2019-05-20 20:40 | NUR ---
at Bedside lavon at bedside with friend. updated on patient status. all questions addressed at this time.
--- NOTE | 2019-05-20 20:43 | NUR ---
[facility] RECEIVED PHONE CALL, UPDATED ON PATIENT STATUS. MOTHER AND SISTER AT US BORDER TO COME VISIT PATIENT. SPOKE WITH SUNG AT [facility].
[2019-05-20] MEDS: ATORVASTATIN 20 MG TAB PO SCH (22:24)
[2019-05-21] VITALS (97 sets, daily range): BP systolic 129–182; BP diastolic 70–115
--- NOTE | 2019-05-21 | NUR ---
Complete Bed bath given patient tolerated well. skin reassessed and no new break down noted. medium black liquid bowel movement cleaned.
[2019-05-21] MEDS: FREE WATER GT SCH ×6 (02:00→21:18)
[2019-05-21] MEDS: D5W/SOD CHL 0.45% 1,000 ML IV SCH (04:00)
[2019-05-21 04:06] LABS: Hematocrit 36.6 % (41.0-53.0); Hemoglobin 12.3 g/dL (13.5-17.5); Mean Corpuscular Hemoglobin 32.7 pg (28.0-32.0); Mean Corpuscular Hgb Conc. 33.5 g/dL (32.0-36.0); Mean Corpuscular Volume 97.5 fL (80.0-100.0); Platelet Count (auto) 133 10^3/uL (140-450); Red Blood Cells 3.75 10^6/uL (4.5-5.90)
[2019-05-21] MEDS: PROPOFOL 100 ML IV SCH ×5 (04:22→18:42)
[2019-05-21] MEDS: MIDAZOLAM DRIP 50 mg/50mL 50 ML IV SCH ×5 (04:22→18:43)
[2019-05-21 04:32] LABS: BUN/Creatinine Ratio 8.6; Calcium 7.7 mg/dL (8.5-10.1); Magnesium 2.8 mg/dL (1.6-2.6); Potassium 3.7 mmol/L (3.5-5.1)
--- NOTE | 2019-05-21 04:35 | NUR ---
Mother and Sister at bedside Both mother and sister are complete [place] speakers. Used Fluent [place] speaking Coworker to updated on family on patients status. All questions addressed at this time.
[2019-05-21 04:37] LABS: Basophils % (manual) 0 (0.0-2.0); Blast Cells 0; Metamyelocytes % 0; Myelocytes % 0; Promyelocytes % 0; Reactive Lymphocytes 0
[2019-05-21 05:22] LABS: Band Neutrophils % (manual) 3; Eosinophils % (manual) 4 (0-7); Lymphocytes % (manual) 9 (10.0-50.0); Monocytes % (manual) 16 (0-12)
[2019-05-21] MEDS: CALCIUM ACETATE 667 MG CAP NG SCH ×3 (06:24→21:18)
[2019-05-21] MEDS: PIPERACILLIN-TAZOB 2.25GM 50 ML IV SCH (06:24)
--- NOTE | 2019-05-21 07:20 | NUR ---
OPENING NOTE SHIFT REPORT RECEIVED AND ASSUMED CARE OF PT FROM SAGE DUMONT
--- NOTE | 2019-05-21 08:00 | NUR ---
DR. FERRARO AT BEDSIDE NO NEW ORDERS AT THIS TIME
--- NOTE | 2019-05-21 08:40 | NUR ---
RT Transport Note: Patient transported to CT with TIM VALDIVIA. Patient transported to and from procedure on ventilator with previous ordered settings. Patient on gathering machine feeder with alarms set and audible, ambu-bag/mask connected to 02 tank. Patient returned to room with no adverse reaction noted. Transport completed without incident.
--- NOTE | 2019-05-21 08:40 | NUR ---
PT TRANSPORTED FOR CT
--- NOTE | 2019-05-21 09:30 | NUR ---
SPOKE TO DR. METZ REGARDING LOW HEART RATE. ORDERS RECEIVED
[2019-05-21] MEDS: DOPamine 1600MCG/ML D5W 250 ML IV SCH (09:45)
[2019-05-21] MEDS: METOPROLOL TARTRATE 25 MG TAB PO SCH ×2 (10:00→21:02)
--- NOTE | 2019-05-21 10:00 | NUR ---
COOLING MEASURES INITIATED
[2019-05-21] MEDS: PANTOPRAZOLE 40 MG/10 ML VIAL INJ IV SCH (10:05)
--- NOTE | 2019-05-21 10:30 | NUR ---
DR. METZ AT BEDSIDE ORDERS RECEIVED
--- NOTE | 2019-05-21 11:30 | NUR ---
SPOKE WITH FAMILY. FAMILY STATES THEY WOULD LIKE PT DNR STATUS. CODE STATUS FORM SIGNED BY DR. METZ AND FAMILY AT BEDSIDE
--- NOTE | 2019-05-21 12:43 | NUR ---
Nutrition Follow-up Notes Wt.: 85.9 kg Pt's intubated sedated with propofol @ 14.288 ml/hr providing 377 kcals from fats no family by bedside. pt s/p head CT per records. pt is currently NPO with no new diet orders per RN Est. Needs: 1500 kcal to 1900 kcal (25-30 kcal/kgBW), 60 gms to 76 gms pro (0.8-1.0 gms/kgBW). Will continue to monitor pertinent labs and reassess nutrient need prn Labs: BUN 64 H, CREAT 7.42 H, GLU 131 H, CA 7.7 L, ALB 2.4 L. Skin: Kenrick scale 11, high risk pt with multiple skin tears and blisters per RN doc. refer to notes for details GI: Pt had 1 BM today per laboratory coordinator. PES: Increased nutrient needs r/t current chronic medical condition aeb intubated, sedated, ESRD for possible HD, sever hypoalbuminemia, NPO. Altered nutrition related lab values r/t current/chronic medical condition aeb hyperglycemia, hypernatremia, hypkalemia, hyperchloremia, elev.renal labs, LFTs, hyperbilirubinemia, hypocalcemia and severe hypoalbuminemia Will continue to monitor NPO status, skin status, pertinent labs and weight trend. F/u in 2 to 3 days. Rec.: 1.) If still NPO in next 48 hrs, consider alternate/EN support with formula choice of Nephro Carb Steady @ 40 ml/hr goal rate as tolerated if pt off propofol if pt's to start on HD tx when medically appropriate. 2.) If Albumin level continues trending down, on HD, consider Prostat 1 pkt BID. 3.) Consider daily Nephrovite and Asc acid 500 mgs BID. 4.) Advance gradually to oral diet when medically appropriate. 5.) Refer to RD for further nutrition educ. and weight monitoring upon discharge. 6.) Continue current plan of care.
[2019-05-21] MEDS: FOLIC ACID 1 MG, MULTIPLE VITAMIN 10 ML, MAGNESIUM SULF SDV 50% 8 MEQ, THIAMINE INJ 100... INJ SCH ×5 (13:25)
--- NOTE | 2019-05-21 14:30 | NUR ---
DR. MACIAS AT BEDSIDE ORDERS RECEIVED
[2019-05-21] MEDS: LEVOFLOXACIN 250MG 50 ML IV SCH (15:45)
--- NOTE | 2019-05-21 19:05 | NUR ---
CLOSING NOTE SHIFT REPORT GIVEN AND CARE ENDORSED TO MARYANN DUMONT
--- NOTE | 2019-05-21 19:30 | NUR ---
Initial Assessment Patient received laying on bed on mechanical ventilation and sedated with Propofol and Versed. HOB elevated greater than 30 degrees. ETT secured with Rahul, ventilator plugged into red outlet, Ambu bag at bedside, oral care and suction rendered. OGT clamped. RN verified proper placement via auscultation with air bolus. LIJ TLC and AUDELIA 20g (saline locked) IV intact and patent with no s/s of infiltration or phlebitis noted. Abd soft. F/C intact and draining yellow urine to gravity. Optifoam gentle adhesive dressing CDI to sacral area. SCD's intact to BLE. Neurovascular status intact with palpable distal pulses x4 extremities, skin warm to touch, and capillary refill brisk. Bed in lowest position, side rails up, bed brakes set, all alarms audible, in direct view of nurses station. Continue close monitoring.
--- NOTE | 2019-05-21 20:30 | NUR ---
Family at bedside Two visitors at bedside. RN updated on status of patient/POC and they verbalized understanding. No concerns or complaints voiced from them.
[2019-05-21] MEDS: hydrALAZINE HCL 20 MG/ML VL IV PRN (21:17)
--- NOTE | 2019-05-21 21:17 | NUR ---
Blood pressure management BP sustaining greater than 160mmhg. Hydralazine administered per MD order. Patient tolerated well.
[2019-05-21] MEDS: ATORVASTATIN 20 MG TAB PO SCH (21:18)
[2019-05-21] MEDS: NOREPINEPHRINE 8 MG/250ML KIT 250 ML IV SCH (21:30)
[2019-05-22] VITALS (88 sets, daily range): BP systolic 122–161; BP diastolic 77–103
--- NOTE | 2019-05-22 00:30 | NUR ---
Elimination Patient incontinent of small/liquid/brown stool. Cleansed and linens changed. Patient tolerated well.
[2019-05-22] MEDS: FREE WATER GT SCH ×6 (02:00→21:34)
--- NOTE | 2019-05-22 03:16 | NUR ---
Hygiene Patient given partial CHG bath. All linens and gown changed. patient tolerated well. Skin re-assessed for any changes and none noted.
[2019-05-22] MEDS: CALCIUM ACETATE 667 MG CAP NG SCH ×3 (05:09→21:34)
--- NOTE | 2019-05-22 07:00 | NUR ---
Report given No changes or incidents to report. Central line remains intact and patent with no s/s of infiltration or phlebitis noted. care endorsed to day shift RN.
--- NOTE | 2019-05-22 08:00 | NUR ---
OPEN RECEIVED REPORT FROM NIGHT RN. ASSUMED CARE OF ICU PATIENT, DNR STATUS AT THIS TIME. PATIENT SEDATED ON VENT. SEE IV FLOW SHEET FOR GTT'S AND THEIR TITRATIONS. CURRENT FIO2 ON VENT IS 30%. OGT CLAMPED AT THIS TIME, PLACEMENT VERIFIED, NO RESIDUALS AT THIS TIME. THORNTON TO GRAVITY. SEE IV FLOW SHEET FOR CURRENT GTT'S AND THEIR TITRATIONS. PATIENT ON DOPAMINE FOR HR SUPPORT. CURRENT HR SR 66. SET RATE AT 2.5 MCG/KG/MIN. WILL CONTINUE TO TURN PATIENT Q2HRS AND PRN. OFF LOADING PRESSURE AREAS WITH PILLOWS. CONTINUE CARE. SEE CONSTRUCTION REPRESENTATIVE FOR FURTHER PATIENT INFORMATION.
[2019-05-22] MEDS: DOPamine 1600MCG/ML D5W 250 ML IV SCH (08:51)
[2019-05-22] MEDS: METOPROLOL TARTRATE 25 MG TAB PO SCH (09:34)
[2019-05-22] MEDS: PANTOPRAZOLE 40 MG/10 ML VIAL INJ IV SCH (09:55)
--- NOTE | 2019-05-22 10:05 | NUR ---
DR. FERRARO AT BEDSIDE: UPDATE MD UPDATED ON PT'S CURRENT STATUS AND POC FOR TODAY. NO NEW ORDERS GIVEN AT THIS TIME. CONTINUE CARE.
[2019-05-22] MEDS: FOLIC ACID 1 MG, MULTIPLE VITAMIN 10 ML, MAGNESIUM SULF SDV 50% 8 MEQ, THIAMINE INJ 100... INJ SCH ×5 (11:00)
[2019-05-22] MEDS: MIDAZOLAM DRIP 50 mg/50mL 50 ML IV SCH ×2 (11:00→21:35)
[2019-05-22] MEDS: PROPOFOL 100 ML IV SCH ×3 (11:00→20:22)
--- NOTE | 2019-05-22 11:10 | NUR ---
DR. METZ AT BEDSIDE: UPDATE MD UPDATED ON PT'S CURRENT STATUS AND POC FOR TODAY. NO ORDERS GIVEN AT THIS TIME. WILL CONTINUE WITH CURRENT TREATMENT PLAN.
--- NOTE | 2019-05-22 20:00 | NUR ---
ASSESSMENT: NON RESPONSIVE TO VERBAL STIMULI. RESPONDS TO NAIL PRESSURE, WITHDRAWS ARMS WHEN DONE. PUPILS 4+ AND ACCOMMODATE, STRONG COUGH AND GAG. CONTINUES ON VERSED 15 MG/HR AND PROPOFOL 50 MCG/KG/MIN. BOTH INFUSING THRU LEFT IJ CENTRAL LINE. CARDIAC - SINUS CRISTI, 50'S, SBP 130'S, DOPAMINE AT 2.5 MCG/KG/MIN FOR RENAL PERFUSION ONLY. LUNGS - COARSE BILATERALLY, SATS 97%. VENTED, 30% FI02, RR 14 ABDOMEN - SOFT, HYPOACTIVE BOWEL SOUND. NO BM TODAY G.U - THORNTON TO DD, CLEAR, YELLOW URINE. SKIN WARM AND DRY, DTI TO LEFT EAR,OOZING HEMATOMA TO BACK OF HEAD. HEMATOMA TO LEFT OF SACRUM WITH OPEN BLISTER. LARGE OPTIFOAM APPLIED TO SACRAL AREA AND BROKEN BLISTER. UNABLE TO LOCALIZE AT THIS TIME. LARGE BLISTER TO LATERAL PORTION OF RIGHT FOOT.
--- NOTE | 2019-05-22 21:00 | NUR ---
SPOKE TO BOTH PATIENT'S AND MOTHER REGARDING PLAN OF CARE FOR THE NIGHT, SEDATION EFFECTS ON HEART RATE. REVIEWED DNR ORDER AND FAMILY UNDERSTANDING. FAMILY PERSIAN SPEAKING MAINLY.
[2019-05-22] MEDS: NOREPINEPHRINE 8 MG/250ML KIT 250 ML IV SCH (21:30)
[2019-05-22] MEDS: ATORVASTATIN 20 MG TAB PO SCH (21:34)
[2019-05-23] VITALS (71 sets, daily range): BP systolic 135–171; BP diastolic 84–122
--- NOTE | 2019-05-23 00:12 | NUR ---
FAMILY AT BEDSIDE.
[2019-05-23] MEDS: PROPOFOL 100 ML IV SCH ×5 (01:00→19:20)
[2019-05-23] MEDS: FREE WATER GT SCH ×7 (02:00→21:46)
[2019-05-23] MEDS: MIDAZOLAM DRIP 50 mg/50mL 50 ML IV SCH ×2 (03:48→10:38)
[2019-05-23 04:30] LABS: Hematocrit 37.1 % (41.0-53.0); Hemoglobin 12.7 g/dL (13.5-17.5); Mean Corpuscular Hemoglobin 33.1 pg (28.0-32.0); Mean Corpuscular Hgb Conc. 34.1 g/dL (32.0-36.0); Platelet Count (auto) 170 10^3/uL (140-450); Red Blood Cells 3.82 10^6/uL (4.5-5.90); Red Cell Distribution Width 13.2 % (11.8-14.3); White Blood Cell 9.1 10^3/uL (4.4-10.8)
[2019-05-23 04:42] LABS: Basophils % (manual) 0 (0.0-2.0); Blast Cells 0; Metamyelocytes % 0; Myelocytes % 0; Promyelocytes % 0; Reactive Lymphocytes 0
[2019-05-23 04:43] LABS: Albumin 2.6 g/dL (3.4-5.0); Calcium 9.1 mg/dL (8.5-10.1); Potassium 3.9 mmol/L (3.5-5.1)
[2019-05-23 04:47] LABS: BUN/Creatinine Ratio 9.1; Bilirubin, Total 0.5 mg/dL (0.2-1.0); Total Protein 6.3 g/dL (6.4-8.2)
--- NOTE | 2019-05-23 05:00 | NUR ---
NEURO: PULLS ON RIGHT ARM WHEN TRYING TO REPOSITION BLOOD PRESSURE CUFF. INSTRUCTED TO OPEN EYES AND EYE LIDS FLUTTERING NOTED. CONTINUES TO HAVE STRONG COUGH AND GAG REFLEXES, PUPILS 4+ BILATERALLY. VERSED AT 9 MG/HR AND PROPOFOL AT 46 MCG/KG/MIN. WILL CONTINUE TO MONITOR.
[2019-05-23 06:09] LABS: Band Neutrophils % (manual) 4; Eosinophils % (manual) 2 (0-7); Lymphocytes % (manual) 8 (10.0-50.0); Monocytes % (manual) 7 (0-12)
[2019-05-23] MEDS: CALCIUM ACETATE 667 MG CAP NG SCH ×3 (06:34→21:46)
--- NOTE | 2019-05-23 07:35 | NUR ---
OPENING SHIFT NOTE Report received from Gracy DUMONT, care assumed. Patient is intubated on ventilator, tolerating well at this time. No signs of pain or distress noted. Afebrile. Pupils reactive, cough and gag intact. Pulses palpable bilaterally radial and pedal. Vital signs stable. Sinus bradycardia noted on bedside monitor. Lungs clear anteriorly, breaths are equal and unlabored. Oxygen saturation is 99%. Galvan catheter present, patent, and secured below bladder. See skin/wound assessment. Bed locked in lowest position, alarms in place. Will continue to monitor.
--- NOTE | 2019-05-23 08:10 | NUR ---
FAMILY Patient at bedside.
--- NOTE | 2019-05-23 09:00 | NUR ---
FAMILY MEETING met with patient , sister, and mother. Ruth DUMONT present to translate. updated family on neuro status, plan of care, and imaging. All questions and concerns addressed.
--- NOTE | 2019-05-23 09:30 | NUR ---
CODE STATUS Patient and family decided to change patient back to Full code.
[2019-05-23] MEDS: DOPamine 1600MCG/ML D5W 250 ML IV SCH (09:45)
--- NOTE | 2019-05-23 10:06 | NUR ---
CXR Beside X-ray performed. Patient tolerated activity well, but after activity respiratory rate increased to 35-40. Patient has hyperactive and very strong cough that creates a small leak during coughing. Respiratory rate still elevated, sedation increased. Family at bedside.
[2019-05-23] MEDS: PANTOPRAZOLE 40 MG/10 ML VIAL INJ IV SCH (10:38)
[2019-05-23] MEDS: FOLIC ACID 1 MG, MULTIPLE VITAMIN 10 ML, MAGNESIUM SULF SDV 50% 8 MEQ, THIAMINE INJ 100... INJ SCH ×5 (12:28)
--- NOTE | 2019-05-23 13:05 | NUR ---
AT BEDSIDE at bedside assessing patient and reviewing chart. MD would like to stop Dopamine gtt and titrate off sedation as patient tolerates.
[2019-05-23] MEDS: hydrALAZINE HCL 20 MG/ML VL IV PRN (14:06)
[2019-05-23] MEDS: LEVOFLOXACIN 250MG 50 ML IV SCH (14:07)
--- NOTE | 2019-05-23 14:30 | NUR ---
WOUND CARE NOTE: Weekly reevaluation by wound care team. Patient remains intubated and sedated. Discussed with bedside RN, Rhea. Last Kenrick score is 13. Wounds remain unchanged to included blisters to right foot. No wounds noted. Family at bedside. Patient is now full code, however neuro status remains unchanged. RECOMMENDATIONS: Nursing to continue with previous wound/skin care orders; wound care team to continue to follow while intubated and Kenrick <18.
--- NOTE | 2019-05-23 15:07 | NUR ---
Nutrition Follow-up Notes Wt.: 75.6 kg Pt's intubated sedated with propofol @ 18.779 ml/hr providing 495 kcals from fats no family by bedside. pt s/p head CT per records. pt is currently NPO with no new diet orders per RN Est. Needs: 1500 kcal to 1900 kcal (25-30 kcal/kgBW), 60 gms to 76 gms pro (0.8-1.0 gms/kgBW). Will continue to monitor pertinent labs and reassess nutrient need prn Labs: BUN 66 H CREAT 6.59 H, ALB 2.6 L. Skin: Kenrick scale 13, mod risk pt with multiple skin tears and blisters per RN doc. refer to WC notes for details GI: Pt had 1 BM yesterday per story analyst. PES: Increased nutrient needs r/t current chronic medical condition aeb intubated, sedated, ESRD for possible HD, sever hypoalbuminemia, NPO. Altered nutrition related lab values r/t current/chronic medical condition aeb hyperglycemia, hypernatremia, hypkalemia, hyperchloremia, elev.renal labs, LFTs, hyperbilirubinemia, hypocalcemia and severe hypoalbuminemia Will continue to monitor NPO status, skin status, pertinent labs and weight trend. F/u in 2 to 3 days. Rec.: 1.) If still NPO in next 48 hrs, consider alternate/EN support with formula choice of Glucerna@ 50 ml/hr goal rate as tolerated if pt on propofol. 2.) If Albumin level continues trending down, on HD, consider Prostat 1 pkt BID. 3.) Consider daily Nephrovite and Asc acid 500 mgs BID. 4.) Advance gradually to oral diet when medically appropriate. 5.) Refer to RD for further nutrition educ. and weight monitoring upon discharge. 6.) Continue current plan of care.
--- NOTE | 2019-05-23 16:00 | NUR ---
MD VISIT at bedside speaking with patients family members regarding plan of care.
--- NOTE | 2019-05-23 16:09 | NUR ---
ROUNDING ASSESSMENT During repositioning patient continues to have hyperactive cough and gag. Patient does settle back down much quicker than previous episode. Patient eyes did attempt to open during coughing episode, and did appear to attempt to open eyes upon verbal commands. Will continue titrating down sedation as tolerated. Vital signs stable at this time. Patient running low grade temp 99.9 orally. Blankets removed, ice packs, and cool compress in place. Will continue to monitor and reassess.
--- NOTE | 2019-05-23 19:20 | NUR ---
REPORT Report given to Tamera DUMONT, care endorsed.
--- NOTE | 2019-05-23 19:30 | NUR ---
Initial Assessment Patient received laying on bed on mechanical ventilation and sedated with Propofol. HOB elevated greater than 30 degrees. ETT secured with [place], ventilator plugged into red outlet, Ambu bag at bedside, oral care and suction rendered. OGT clamped. RN verified proper placement via auscultation with air bolus. LIJ TLC and AUDELIA 20g (saline locked) IV intact and patent with no s/s of infiltration or phlebitis noted. Abd soft. F/C intact and draining yellow urine to gravity. Optifoam gentle adhesive dressing CDI to sacral area. SCD's intact to BLE. Neurovascular status intact with palpable distal pulses x4 extremities, skin warm to touch, and capillary refill brisk. Bed in lowest position, side rails up, bed brakes set, all alarms audible, in direct view of nurses station. Continue close monitoring.
--- NOTE | 2019-05-23 20:15 | NUR ---
Family at bedside Two visitors at bedside. RN updated on status of patient/POC and they verbalized understanding. No concerns or complaints voiced from them.
[2019-05-23] MEDS: NOREPINEPHRINE 8 MG/250ML KIT 250 ML IV SCH (21:30)
[2019-05-24] VITALS (98 sets, daily range): BP systolic 123–158; BP diastolic 72–97
--- NOTE | 2019-05-24 | NUR ---
Elimination Patient incontinent of large/liquid/brown stool. Patient given CHG bath, all linens and gown changed. Barrier cream applied to elise-area.
[2019-05-24] MEDS: FREE WATER GT SCH ×8 (01:57→21:32)
--- NOTE | 2019-05-24 02:00 | NUR ---
Ongoing Assessment No changes or incidents to report. patient continues to rest with no s/s of distress or pain. Titrating down on propofol slowly per patient tolerance--no change to neuro status noted. Being turned at least Q2H, all bony prominences and heels offloaded with pillows, skin is clean and dry. Hob elevated. oral care and suction being rendered frequently/PRN. Visitors in and out throughout the night with no concerns or complaints voiced from them. Neurovascular status remains intact with palpable distal pulses x4 extremities, skin warm to touch, capillary refill brisk. All alarms audible. Continue close monitoring.
[2019-05-24 03:10] LABS: Basophils # (auto) 0 uL; Basophils % (auto) 0.4 % (0.0-2.0); Eosinophils # (auto) 0.2 uL; Eosinophils % (auto) 1.6 % (0.0-7.0); Hematocrit 35.4 % (41.0-53.0); Hemoglobin 11.9 g/dL (13.5-17.5); Lymphocytes # (auto) 1.3 uL; Lymphocytes % (auto) 11.5 % (10.0-50.0); Mean Corpuscular Hemoglobin 32.6 pg (28.0-32.0); Mean Corpuscular Hgb Conc. 33.7 g/dL (32.0-36.0); Mean Corpuscular Volume 96.8 fL (80.0-100.0); Monocytes # (auto) 0.9 uL; Monocytes % (auto) 8.2 % (0.0-12.0); Neutrophils # (auto) 8.6 uL; Neutrophils % (auto) 78.3 % (37.0-80.0); Nucleated Red Blood Cells % 0.1 %; Platelet Count (auto) 188 10^3/uL (140-450); Red Blood Cells 3.66 10^6/uL (4.5-5.90); Red Cell Distribution Width 13.3 % (11.8-14.3); White Blood Cell 10.9 10^3/uL (4.4-10.8)
[2019-05-24 03:43] LABS: Albumin 2.8 g/dL (3.4-5.0); BUN/Creatinine Ratio 9.4; Calcium 9.1 mg/dL (8.5-10.1); Potassium 4.1 mmol/L (3.5-5.1)
[2019-05-24 03:46] LABS: Bilirubin, Total 0.5 mg/dL (0.2-1.0); Total Protein 6.4 g/dL (6.4-8.2)
--- NOTE | 2019-05-24 04:00 | NUR ---
Cooling measures temperature 99.3-blankets taken off.
[2019-05-24] MEDS: CALCIUM ACETATE 667 MG CAP NG SCH ×3 (05:14→21:32)
--- NOTE | 2019-05-24 07:00 | NUR ---
Report given No changes or incidents to report. No S/s of distress or pain, all vitals stable. Care endorsed to day shift RN. w
--- NOTE | 2019-05-24 08:00 | NUR ---
OPEN RECEIVED REPORT FROM NIGHT RN. ASSUMED CARE OF ICU PATIENT, FULL CODE STATUS AT THIS TIME. PATIENT SEDATED ON VENT. CURRENT FIO2 AT 30%. CONTINUES ON PREVIOUS VENT SETTINGS. OGT CLAMPED, NO RESIDUALS NOTED AT THIS TIME. PATIENT HAD MODERATE AMOUNT OF LIQUID GREEN STOOL AT THIS TIME. PATIENT CLEANED AND LINENS CHANGED AT THIS TIME. OPTIFOAM DRESSING PLACED OVER SACRUM WHERE THERE IS A SKIN TEAR . TRIAD CREAM ALSO APPLIED OVER SITE. THORNTON TO GRAVITY. SEE TAKER OFF HEMP FIBER FOR FURTHER PATIENT INFORMATION. LEFT IJ TLC PATENT AND DRESSING CDI. WILL CONTINUE TO TURN PATIENT Q2HRS AND PRN. OFF LOADING PRESSURE AREAS WITH PILLOWS. CONTINUE CARE.
--- NOTE | 2019-05-24 08:30 | NUR ---
COOLING MEASURES PATIENT'S CURRENT TEMP 99.4 ORALLY. ICE PACKS PLACED. ALL BLANKETS TAKEN OFF PATIENT AT THIS TIME. CONTINUE CARE.
--- NOTE | 2019-05-24 09:00 | NUR ---
DR. OH AT BEDSIDE: ORDERS MD UPDATED ON PT'S CURRENT STATUS, LABS AND POC FOR TODAY. ORDERS GIVEN AND TO BE CARRIED OUT. WILL CONTINUE TO MONITOR.
[2019-05-24] MEDS: D5W/SOD CHL 0.2% 1,000 ML IV SCH ×2 (09:57→23:00)
[2019-05-24] MEDS: PROPOFOL 100 ML IV SCH (11:00)
--- NOTE | 2019-05-24 11:00 | NUR ---
AT BEDSIDE: UPDATE UPDATED FAMILY AT THIS TIME ON PT'S CURRENT STATUS AND POC FOR TODAY. FAMILY REMAINS AT BEDSIDE. CONTINUE CARE.
[2019-05-24] MEDS: PANTOPRAZOLE 40 MG/10 ML VIAL INJ IV SCH (11:04)
[2019-05-24] MEDS: FOLIC ACID 1 MG, MULTIPLE VITAMIN 10 ML, MAGNESIUM SULF SDV 50% 8 MEQ, THIAMINE INJ 100... INJ SCH ×5 (12:30)
--- NOTE | 2019-05-24 14:30 | NUR ---
DR. FERRARO AT BEDSIDE: ORDERS MD UPDATED ON PT'S CURRENT NEURO ASSESSMENT AND POC AT THIS TIME. ORDERS TO BE GIVEN. INFORMED THAT I HAD TO INCREASE PATIENT SEDATION TO IMPROVE HIS BREATHING STATUS DUE TO HYPERACTIVE GAG AND COUGH REFLEXES. MD VERBALIZES UNDERSTANDING. CONTINUE CARE.
[2019-05-24 18:33] LABS: BUN/Creatinine Ratio 9.4; Calcium 8.7 mg/dL (8.5-10.1); Potassium 3.6 mmol/L (3.5-5.1)
--- NOTE | 2019-05-24 19:30 | NUR ---
Initial Assessment Patient received laying on bed on mechanical ventilation and sedated with Propofol. HOB elevated greater than 30 degrees. ETT secured with [place], ventilator plugged into red outlet, Ambu bag at bedside, oral care and suction rendered. OGT clamped. RN verified proper placement via auscultation with air bolus. LIJ TLC and AUDELIA 20g (saline locked) IV intact and patent with no s/s of infiltration or phlebitis noted. Abd soft. F/C intact and draining yellow urine to gravity. Optifoam gentle adhesive dressing CDI to sacral area-noted pressure area to that site will take picture for reference per protocol. SCD's intact to BLE. Neurovascular status intact with palpable distal pulses x4 extremities, skin warm to touch, and capillary refill brisk. Bed in lowest position, side rails up, bed brakes set, all alarms audible, in direct view of nurses station. Continue close monitoring.
--- NOTE | 2019-05-24 20:00 | NUR ---
Elimination Patient incontinent of large/liquid/brown stool. Patient given CHG bath, all linens and gown changed. Barrier cream applied to elise-area.
[2019-05-24] MEDS: NOREPINEPHRINE 8 MG/250ML KIT 250 ML IV SCH (20:54)
--- NOTE | 2019-05-24 21:45 | NUR ---
Hospitalist call Informed of diarrhea. Order received for ok to insert rectal tube.
--- NOTE | 2019-05-24 22:00 | NUR ---
Wound care Pressure area to sacral area cleansed, z-guard barrier cream applied and new Optifoam gentle adhesive dressing applied. Photo taken for reference per protocol. Wound care consult to be placed.
--- NOTE | 2019-05-24 22:15 | NUR ---
Rectal tube inserted Order received to insert rectal tube. Inserted without incident or trauma to site. patient tolerated well. Draining liquid/brown stool.
[2019-05-25] VITALS (102 sets, daily range): BP systolic 119–166; BP diastolic 68–115
--- NOTE | 2019-05-25 00:30 | NUR ---
Central line dressing change Central line dressing changed using aseptic technique per 7 day protocol without incident. Patient tolerated well.
--- NOTE | 2019-05-25 00:45 | NUR ---
IV removal IV to AUDELIA DC'd with clean sterile technique per 72 hour protocol, catheter fully intact. Pressure dressing applied to site. Patient tolerated well.
[2019-05-25] MEDS: FREE WATER GT SCH ×12 (01:44→22:08)
--- NOTE | 2019-05-25 04:00 | NUR ---
Ongoing Assessment Patient remains resting with no s/s of distress or pain. Propofol tubing changed per 12 hour protocol. no changes or incidents to report. HOB elevated, being turned, all bony prominences and heels offloaded with pillows, skin is clean and dry. Skin re-assessed for any changes and none noted. Neurovascular status remains intact with palpable distal pulses, skin warm to touch, and capillary refill brisk. Central line intact and patent with no s/s of infiltration or phlebitis noted. All fall/safety precautions intact. Continue close monitoring.
[2019-05-25 04:09] LABS: Basophils # (auto) 0 uL; Basophils % (auto) 0.4 % (0.0-2.0); Eosinophils # (auto) 0.3 uL; Eosinophils % (auto) 2.4 % (0.0-7.0); Hematocrit 27.6 % (41.0-53.0); Hemoglobin 9.5 g/dL (13.5-17.5); Lymphocytes # (auto) 1.4 uL; Lymphocytes % (auto) 12.7 % (10.0-50.0); Mean Corpuscular Hemoglobin 33.4 pg (28.0-32.0); Mean Corpuscular Hgb Conc. 34.3 g/dL (32.0-36.0); Mean Corpuscular Volume 97.2 fL (80.0-100.0); Monocytes # (auto) 0.7 uL; Monocytes % (auto) 6.4 % (0.0-12.0); Neutrophils # (auto) 8.5 uL; Neutrophils % (auto) 78.1 % (37.0-80.0); Platelet Count (auto) 167 10^3/uL (140-450); Red Blood Cells 2.84 10^6/uL (4.5-5.90); Red Cell Distribution Width 13.1 % (11.8-14.3); White Blood Cell 10.9 10^3/uL (4.4-10.8)
[2019-05-25 04:30] LABS: Potassium 3.1 mmol/L (3.5-5.1)
[2019-05-25 04:33] LABS: Albumin 2.1 g/dL (3.4-5.0); BUN/Creatinine Ratio 9.7; Calcium 6.9 mg/dL (8.5-10.1)
[2019-05-25 04:37] LABS: Bilirubin, Total 0.4 mg/dL (0.2-1.0)
--- NOTE | 2019-05-25 04:58 | NUR ---
Hospitalist paged re: labs. Waiting for call back.
--- NOTE | 2019-05-25 05:04 | NUR ---
Hospitalist called back Informed of labs. Order received for Potassium effervescent 25meq GT x1. RN performe TORB and AIR SAMPLER verified order to be correct. No additional orders received.
[2019-05-25] MEDS ORDERED: POTASSIUM EFFERVESENT TAB 25 MEQ GT ONE (05:15)
[2019-05-25] MEDS: CALCIUM ACETATE 667 MG CAP NG SCH ×3 (05:56→22:08)
--- NOTE | 2019-05-25 07:00 | NUR ---
Report given No changes or incidents to report. No s/s of distress or pain noted, all vitals stable Care endorsed to day shift RN.
--- NOTE | 2019-05-25 07:25 | NUR ---
OPENING SHIFT NOTE Report received from Tamera DUMONT, care assumed. Patient is intubated on ventilator, tolerating well at this time. No signs of pain or distress noted. Low grade temp 99.9 orally, blankets removed, cooling measures initiated. Pupils brisk and reactive to light. hyperactive cough and gag noted. Pulses palpable bilaterally radial and pedal. Vital signs stable. Lungs clear anteriorly, breaths are equal and unlabored, tolerating ventilator at this time. Galvan catheter present, patent, and secured below bladder Flexi-seal noted. See skin/wound assessment. Bed locked in lowest position, alarms in place. Will continue to monitor.
--- NOTE | 2019-05-25 08:00 | NUR ---
CARES Patient had moderate loose bowel movement round Flexi-seal. Elise-care performed, z-Guard applied to elise area. Patient given partial bed bath and linen change. New gown place on patient. Moderate creamy secretions noted in oral and nasal cavity. Oral care complete. Patient tolerate activity fair. Head of bed great than 30 degrees, bed locked in lowest position with alarms in place. Will continue to monitor.
[2019-05-25] MEDS: PROPOFOL 100 ML IV SCH ×3 (09:41→23:38)
--- NOTE | 2019-05-25 10:00 | NUR ---
AT BEDSIDE and SARABJIT Reynolds at bedside assessing patient and reviewing chart. Orders obtained.
[2019-05-25] MEDS: PANTOPRAZOLE 40 MG/10 ML VIAL INJ IV SCH (10:06)
[2019-05-25] MEDS ORDERED: HCTZ 25 MG TAB PO ONE (10:15)
--- NOTE | 2019-05-25 10:20 | NUR ---
ELIMINATION Patient had moderate amount of stool leakage around flexi-seal. Delmi care performed, patient repositioned on side. Patient tolerated well. Bed locked in lowest position, alarms in place, continue to monitor.
[2019-05-25] MEDS ORDERED: hydrALAZINE HCL 10 MG TAB PO ONE (10:30)
[2019-05-25] MEDS ORDERED: Glucerna 1.2 Cal 1Liter BOTTLE GT SCH ×2 (11:00→11:30)
[2019-05-25] MEDS: POTASSIUM CHL 20MEQ/100ML 100 ML IV SCH ×2 (11:26→12:43)
--- NOTE | 2019-05-25 11:58 | NUR ---
VISITOR Patient mother and sister at bedside.
--- NOTE | 2019-05-25 12:00 | NUR ---
WOUND CARE Wound care nurse at bedside for sacral skin assessment.
--- NOTE | 2019-05-25 12:00 | NUR ---
WOUND CARE NOTE: IN TO SEE PATIENT WITH NEW WOUND CONCERN AT THIS TIME. PATIENT HAS CURRENT STACEY SCORE OF 11. HE REMAINS INTUBATED, NON RESPONSIVE. PATIENT HAS BEEN HAVING MULTIPLE BOUTS WITH INCONTINENT LIQUID STOOL. HE HAS INDWELLING RECTAL TUBE IN PLACE, WITH LIQUID BROWN STOOL WITHIN TUBING/BAG RESERVOIR. PATIENT IS NOTED TO HAVE A MILD MASD WITH DARK RED SKIN. THERE IS MINOR PARTIAL THICKNESS SKIN EROSION NOTED TO THE SACRUM. ZGUARD, OPTIFOAM GENTLE SACRAL DRESSING APPLIED BY BEDSIDE NURSE PER MD ORDER. WOUND PHOTO WAS TAKEN FOR REFERENCE BY BEDSIDE NURSE. RECOMMEND: BID/PRN APPLICATION WITH ZGUARD, OPTIFOAM GENTLE DRESSINGS, CONTINUATION WITH RECTAL TUBE, CONTINUATION WITH ALL OTHER WOUND CARE ORDERS PREVIOUSLY PRESCRIBED BY MD. WOUND CARE TEAM WILL CONTINUE TO MONITOR. Addendum: 05/25/19 at 1531 by Daniela Turcios RN Amended: Links added.
[2019-05-25] MEDS: D5W/SOD CHL 0.2% 1,000 ML IV SCH (12:10)
--- NOTE | 2019-05-25 12:35 | NUR ---
Nutrition Follow-up Notes Wt.: 74.0 kg today. Pt's intubated, no immediate family member at bedside when rounded this morning. Pt's currently sedated with Propofol @ 19.595 ml/hr providing 517 kcal from Fat, remains NPO, noted to start today on EN support of Glucerna 1.2 Benny 50 ml/hr to provide 1440 kcal, 72 gms pro and 966 ml free water . Est. Needs: 1500 kcal to 1900 kcal (25-30 kcal/kgBW), 60 gms to 76 gms pro (0.8-1.0 gms/kgBW). Will continue to monitor pertinent labs and reassess nutrient need prn Labs: Gluc 112 H, Na 151 H, K 3.1 L, BUN 39 H Cr 4.03 H,Ca 6.9 L, ALT 156 H, Tpro 5.0 L, Alb 2.1 L. Skin: Kenrick scale 11, high risk, pt's with multiple skin tears and blisters per RN doc. Pls refer to latest package delivery room service runner's notes for details re: tx plans. GI: Pt had 20 ml stool output this morning per telephone solicitor. PES: Increased nutrient needs r/t current chronic medical condition aeb intubated, sedated, ESRD for possible HD, sever hypoalbuminemia, NPO. Altered nutrition related lab values r/t current/chronic medical condition aeb hyperglycemia, hypernatremia, hypkalemia, hyperchloremia, elev.renal labs, LFTs, hyperbilirubinemia, hypocalcemia and severe hypoalbuminemia Will continue to monitor NPO status, EN tolerance skin status, pertinent labs and weight trend. F/u in 2 to 3 days. Rec.: 1.) If still NPO, remains sedated on current rate of Propofol, continue EN support of Glucerna 1.2 Benny @ 45 ml/hr goal rate as tolerated. 2.) If Albumin level continues trending down with improved renal labs, consider Prostat 1 pkt BID. 3.) Consider daily MVI with minerals and Asc acid 500 mgs BID. 4.) Advance gradually to oral diet when medically appropriate. 5.) Refer to RD for further nutrition educ. and weight monitoring upon discharge. 6.) Continue current plan of care.
[2019-05-25] MEDS: FOLIC ACID 1 MG, MULTIPLE VITAMIN 10 ML, MAGNESIUM SULF SDV 50% 8 MEQ, THIAMINE INJ 100... INJ SCH ×5 (12:43)
--- NOTE | 2019-05-25 13:10 | NUR ---
SPEAKING WITH FAMILY speaking with mother and sister regarding plan of care. Symone DUMONT at bedside to translate. All questions and concerns addressed.
--- NOTE | 2019-05-25 13:16 | NUR ---
ACCESS CONTROL SPECIALIST AT BEDSIDE
--- NOTE | 2019-05-25 14:00 | NUR ---
ELECTROENCEPHALOGRAM COMPLETED AT BEDSIDE. RN AWARE.
--- NOTE | 2019-05-25 14:10 | NUR ---
AT BEDSIDE FOR ANUP Dr. Ace at bedside for exam and ANUP. Consents obtained by family members. clinical technologist at bedside. Additional orders received and carried out.
[2019-05-25] MEDS ORDERED: MIDAZOLAM HCL 5 MG/ML-1ML VIAL ONE (14:14)
[2019-05-25] MEDS ORDERED: MIDAZOLAM HCL 5 MG/ML-1ML VIAL IV ONE (14:45)
[2019-05-25] MEDS: D5W 5% 1,000 ML IV SCH (15:15)
[2019-05-25] MEDS: LEVOFLOXACIN 250MG 50 ML IV SCH (15:15)
--- NOTE | 2019-05-25 15:20 | NUR ---
AT BEDSIDE at bedside. MD reviewing chart, no new orders received at this time.
--- NOTE | 2019-05-25 16:48 | NUR ---
CARES/LINEN Skin re-assessment performed. Delmi area cleansed and z-guard applied. New linens placed on bed. Patient reposition on side. Patient tolerated activity well. Patient appears to be attempting to open eyes. Will continue to decrease sedation as tolerated.
--- NOTE | 2019-05-25 19:15 | NUR ---
REPORT Report given to Jo-Ann DUMONT, care endorsed.
--- NOTE | 2019-05-25 20:00 | NUR ---
OPEN NOTES PATIENT SEDATED WITH IV PROPOFOL. OPEN EYES TO STIMULATION BUT NOT FOLLOWING COMMANDS, BLANK STARES. MOVING LIMBS BUT STIFF.WILL WEAN DOWN SEDATION TOLERATED. INTUBATED AND VENTILATED ON AC MODE. RR 14-20/MIN. SPO2 98-100%. MINIMAL ETT SECRETIONS, ORAL MODERATE AMOUNT. VS : HR 56/MIN, BP 140/82 MMHG, TEMP 98.9F OGT WITH ONGOING TUBE FEEDING OF GLUCERNA AT 15ML/HR. RESIDUAL CHECKED = 0 ML, INCREASED FEEDING TO 20ML/HR. WITH FREE WATER Q2H AND D5 DRIP FOR HIGH NA THORNTON CATHETER DRAINING TO YELLOWISH OUTPUT SKIN HAS MULTIPLE PRESSURE SORES AND SKIN TEAR -REFER WOUND CHART
--- NOTE | 2019-05-25 21:00 | NUR ---
FRIENDS AT BEDSIDE
[2019-05-25] MEDS: NOREPINEPHRINE 8 MG/250ML KIT 250 ML IV SCH (21:30)
--- NOTE | 2019-05-25 22:00 | NUR ---
ELIMINATION PATIENT'S STOOL LEAKING FROM THE PERIANAL AREA. FLEXISEAL INTACT STOOL - LIQUID GREENISH CLEANED PATIENT. PARTIAL LINEN CHANGED DONE. REPOSITIONED WILL CONTINUE TO MONITOR
--- NOTE | 2019-05-25 22:00 | NUR ---
NEURO PATIENT COUGHING VIGOROUSLY, OPENING EYES BUT NOT FOLLOWING KEPT SEDATION AT SAME RATE - WILL CHECK LATER IF CAN DECREASE MORE
[2019-05-25] MEDS: hydrALAZINE HCL 10 MG TAB PO SCH (22:12)
[2019-05-26] VITALS (96 sets, daily range): BP systolic 119–173; BP diastolic 77–105
--- NOTE | 2019-05-26 | NUR ---
TUBE FEEDING OGT placement checked, residual checked = 0 ml Increased rate to 20 ml/hr
[2019-05-26] MEDS: FREE WATER GT SCH ×12 (02:13→22:12)
--- NOTE | 2019-05-26 04:00 | NUR ---
TUBE FEEDING OGT placement checked, residual checked = 0 ml Increased rate to 30 ml/hr
[2019-05-26 04:17] LABS: Basophils # (auto) 0 uL; Basophils % (auto) 0.3 % (0.0-2.0); Eosinophils # (auto) 0.2 uL; Eosinophils % (auto) 1.8 % (0.0-7.0); Hematocrit 33.1 % (41.0-53.0); Lymphocytes % (auto) 8.2 % (10.0-50.0); Mean Corpuscular Hemoglobin 32.3 pg (28.0-32.0); Mean Corpuscular Hgb Conc. 33.2 g/dL (32.0-36.0); Mean Corpuscular Volume 97.1 fL (80.0-100.0); Monocytes # (auto) 0.9 uL; Monocytes % (auto) 7.3 % (0.0-12.0); Neutrophils % (auto) 82.4 % (37.0-80.0); Platelet Count (auto) 236 10^3/uL (140-450); Red Blood Cells 3.41 10^6/uL (4.5-5.90); White Blood Cell 12.1 10^3/uL (4.4-10.8)
[2019-05-26 04:26] LABS: INR 1.08 (0.9-1.15); Partial Thromboplastin Time 29.3 sec (23.64-32.05)
[2019-05-26 04:29] LABS: Calcium 9.2 mg/dL (8.5-10.1); Potassium 3.9 mmol/L (3.5-5.1)
[2019-05-26 04:33] LABS: BUN/Creatinine Ratio 9.2
--- NOTE | 2019-05-26 05:00 | NUR ---
ROUNDS Patient sweating profusely, breathing 30-33/min, coughing, SPO2 95% increased sedation will continue to monitor
--- NOTE | 2019-05-26 05:15 | NUR ---
Patient bathe/linen change Patient cleaned with CHG wipes. Skin integrity assessed for any changes. Linens changed. Patient repositioned for comfort.
[2019-05-26] MEDS: PROPOFOL 100 ML IV SCH (05:51)
[2019-05-26] MEDS: CALCIUM ACETATE 667 MG CAP NG SCH ×3 (06:21→22:10)
--- NOTE | 2019-05-26 06:22 | NUR ---
OGT RE-INSERTED Checked patient's OGT before giving medication - unable to hear placement Adjusted but still unable to auscultate Re-inserted OGT, verified placement with another licensed mass real estate appraiser given,re-started feeding
--- NOTE | 2019-05-26 06:55 | NUR ---
Respiratory note: RECEIVED PATIENT ON V200 VENT ORALLY INTUBATED WITH A 7.5 ETT SECURED VIA MIKE AT THE 23CM MARKING AT THE LIP, AND MECHANICALLY VENTILATED WITH THE CHARTED SETTINGS. SPO2 97%, LUNG SOUNDS ARE WELL AERATED BUT SLIGHTLY COARSE IN THE APICES. SKIN IS WARM/MOIST TO THE TOUCH AND IS INTACT NEAR MIKE SITE. NO BREAKDOWN OR LOSS IN SKIN INTEGRITY NOTED AROUND LIPS. THERE IS AN OGT IN PLACE AND SECURED TO THE TT, A TRIPLE LUMEN CENTRAL LINE IS PLACED IN THE LEFT IJ. THERE IS PITTING EDEMA NOTED IN THE BILATERAL UPPER EXTREMITIES; NO EDEMA NOTED IN LOWER EXTREMITIES. NO NEW AM CXR TO ASSESS. PATIENT IS UNRESPONSIVE TO BOTH VERBAL/TACTILE STIMULI AND IS SEDATED ON A PROPOFOL DRIP. HE IS RESTING COMFORTABLY AND TOLERATING VENT WELL, NO CHANGES MADE. VENT PLUGGED INTO RED OUTLET AND ALL ALARMS ARE SET AND AUDIBLE. WILL CONTINUE TO ASSESS PATIENT WELL VENTILATOR FUNCTION.
--- NOTE | 2019-05-26 07:25 | NUR ---
OPENING SHIFT NOTE Report received from Jo-Ann DUMONT, care assumed. Patient is intubated on ventilator, tolerating well at this time. Patient under mild sedation of Diprivan, pt response to painful stimuli. Patient attempts to open eyes but does not follow commands. Will continue titrating down sedation as tolerated. No signs of pain or distress noted. Pupils brisk and reactive to light. Hyperactive cough and gag noted. Pulses palpable bilaterally radial and pedal. Vital signs stable. Lungs clear anteriorly, breaths are equal and unlabored, tolerating ventilator at this time. Galvan catheter present, patent, and secured below bladder Flexi-seal noted. See skin/wound assessment. Bed locked in lowest position, alarms in place. Will continue to monitor.
--- NOTE | 2019-05-26 07:40 | NUR ---
AT BEDSIDE at bedside assessing patient. No new orders received. Will continue to monitor.
--- NOTE | 2019-05-26 08:00 | NUR ---
TUBE FEEDINGS 10 cc residual noted, tube feeding rate increased to 35 cc/hr.
[2019-05-26] MEDS: hydrALAZINE HCL 10 MG TAB PO SCH ×2 (09:52→22:12)
[2019-05-26] MEDS: PANTOPRAZOLE 40 MG/10 ML VIAL INJ IV SCH (09:52)
[2019-05-26] MEDS ORDERED: HCTZ 25 MG TAB PO SCH (10:00)
--- NOTE | 2019-05-26 10:20 | NUR ---
AT BEDSIDE at bedside speaking with patient sister about plan of care.
--- NOTE | 2019-05-26 10:35 | NUR ---
SEDATION Sedation titrated off to allow MD to assess patients neuro status. Family at bedside.
--- NOTE | 2019-05-26 10:40 | NUR ---
TUBE FEEDINGS Tube feedings being held now that sedation has been turned off to decrease risk for aspiration when patient coughs.
[2019-05-26] MEDS: D5W 5% 1,000 ML IV SCH ×2 (10:59→22:00)
--- NOTE | 2019-05-26 11:10 | NUR ---
INSURANCE Heriberto at beside assisting patients family with setting up insurance.
--- NOTE | 2019-05-26 12:00 | NUR ---
ELIMINATION Stool leaking around Flexi-seal, green liquid. Delmi care performed, z-guard applied. Partial linen change complete. Patient repositioned on side. Tolerated activity fair, strong cough/gag reflex. Patient resting, will continue to monitor.
--- NOTE | 2019-05-26 12:56 | NUR ---
AT BEDSIDE at bedside. MD reviewing chart, no new orders received at this time.
[2019-05-26] MEDS ORDERED: cefTRIAXone 1GM/50ML D5W 50 ML IV ONE (13:45)
--- NOTE | 2019-05-26 15:00 | NUR ---
ELIMINATION Stool leaking around Flexi-seal, green liquid. Delmi care performed, z-guard applied. Partial linen change complete. Patient repositioned on side. Tolerated activity fair. Patient opening eyes but not tracking. Patient resting, will continue to monitor.
--- NOTE | 2019-05-26 15:30 | NUR ---
[employer] consult for pt without insurance. The [facility] desk representative has contacted the and waiting for paperwork.
--- NOTE | 2019-05-26 18:15 | NUR ---
TACHYCARDIA Patient had short episode of sinus tachycardia 130's. Episode lasted less than one minute. Respiratory rate was elevated 28-30. Family instructed to translate to patient to slow breathing down. Patient responded and decreased respiratory rate and heart rate returned to baseline 60's. Will continue to monitor.
--- NOTE | 2019-05-26 19:19 | NUR ---
REPORT Report given to Jo-Ann DUMONT, care endorsed.
--- NOTE | 2019-05-26 19:45 | NUR ---
OPEN NOTES ASSUMED CARE OF PATIENT. SEDATION WAS STOPPED THIS MORNING. PATIENT OPEN EYES TO STIMULATION BUT NOT FOLLOWING COMMANDS, BLANK STARES. MOVING LIMBS BUT STIFF.PUPILS EQUAL,BOTH REACTIVE TO LIGHT. COUGHS HARD STILL. INTUBATED AND VENTILATED ON AC MODE. RR 14-20/MIN. SPO2 98-100%. SUCTIONED,ORAL CARE DONE. VS STABLE. AFEBRILE BUT WARM TOUCH. OGT - CLAMPED,PLACEMENT CHECKED. FEEDINGS HELD FOR PROCEDURE TOMORROW. THORNTON CATHETER DRAINING TO YELLOWISH OUTPUT SKIN HAS MULTIPLE PRESSURE SORES AND SKIN TEAR FULL ASSESSMENT DONE - REFER INTERVENTIONS
[2019-05-26] MEDS: NOREPINEPHRINE 8 MG/250ML KIT 250 ML IV SCH (21:30)
--- NOTE | 2019-05-26 22:00 | NUR ---
FAMILY PATIENT'S MOTHER AND SISTER AT BEDSIDE. UPDATED THEM OF CONDITION AND POC. TRANSLATION DONE BY STAFFING ACCOUNT MANAGER ADELA. VERBALIZED UNDERSTANDING
[2019-05-27] VITALS (87 sets, daily range): BP systolic 124–205; BP diastolic 72–130
--- NOTE | 2019-05-27 | NUR ---
HELD FREE WATER-PATIENT NPO FOR PROCEDURE FREDDY
[2019-05-27] MEDS: FREE WATER GT SCH ×9 (00:02→18:00)
--- NOTE | 2019-05-27 05:20 | NUR ---
HYGIENE PATIENT CLEANED WITH CHG WIPES. HAIR WASHED.LINENS CHANGED. SKIN ASSESSED. REPOSITIONED ORAL CARE DONE
[2019-05-27 05:24] LABS: Basophils # (auto) 0 uL; Basophils % (auto) 0.3 % (0.0-2.0); Eosinophils # (auto) 0.1 uL; Eosinophils % (auto) 0.8 % (0.0-7.0); Hemoglobin 11.1 g/dL (13.5-17.5); Lymphocytes % (auto) 8.4 % (10.0-50.0); Mean Corpuscular Hemoglobin 32.6 pg (28.0-32.0); Mean Corpuscular Hgb Conc. 33.8 g/dL (32.0-36.0); Mean Corpuscular Volume 96.3 fL (80.0-100.0); Monocytes % (auto) 8.3 % (0.0-12.0); Neutrophils # (auto) 9.7 uL; Neutrophils % (auto) 82.2 % (37.0-80.0); Platelet Count (auto) 264 10^3/uL (140-450); Red Blood Cells 3.42 10^6/uL (4.5-5.90); Red Cell Distribution Width 12.9 % (11.8-14.3); White Blood Cell 11.8 10^3/uL (4.4-10.8)
[2019-05-27 05:40] LABS: BUN/Creatinine Ratio 10.1; Calcium 9.4 mg/dL (8.5-10.1); Potassium 3.6 mmol/L (3.5-5.1)
[2019-05-27 05:43] LABS: INR 1.11 (0.9-1.15); Partial Thromboplastin Time 26.7 sec (23.64-32.05)
[2019-05-27] MEDS: CALCIUM ACETATE 667 MG CAP NG SCH ×3 (06:00→22:00)
[2019-05-27] MEDS: D5W 5% 1,000 ML IV SCH (06:48)
--- NOTE | 2019-05-27 07:10 | NUR ---
OPENING NOTE SHIFT REPORT RECEIVED AND ASSUMED CARE OF PT FROM JONI DUMONT
--- NOTE | 2019-05-27 07:30 | NUR ---
REPORT ENDORSED CARE TO TIM WIGGINS
--- NOTE | 2019-05-27 08:00 | NUR ---
COOLING MEASURES INITIATED
[2019-05-27] MEDS: cefTRIAXone 1GM/50ML D5W 50 ML IV SCH (09:23)
[2019-05-27] MEDS ORDERED: hydrALAZINE HCL 20 MG/ML VL IV PRN (09:30)
[2019-05-27] MEDS ORDERED: LIDOCAINE VISCOUS 2% 15ML UD ONE (09:45)
[2019-05-27] MEDS ORDERED: diphenhdrAMINE HCL 50 MG/1 ML VL ONE (09:45)
[2019-05-27] MEDS ORDERED: MIDAZOLAM HCL 5 MG/ML-1ML VIAL ONE (09:45)
[2019-05-27] MEDS ORDERED: fentaNYL CITRATE 100 MCG/2 ML VL ONE ×3 (09:45→13:44)
[2019-05-27] MEDS ORDERED: SODIUM CHLORIDE LOCK 10 ML ONE (09:45)
[2019-05-27] MEDS: PANTOPRAZOLE 40 MG/10 ML VIAL INJ IV SCH ×2 (10:26→21:29)
[2019-05-27] MEDS: hydrALAZINE HCL 10 MG TAB PO SCH ×2 (10:27→22:00)
--- NOTE | 2019-05-27 11:05 | NUR ---
Nutrition Follow-up Notes Wt.: 67.1 kg today. Pt's intubated, non-sedated, immediate family members at bedside, however unable to provide additional pertinent information since they just came from [place], not living with pt and they last seen the pt when he was only 4 yrs old when rounded this morning. Pt remains NPO, with EN support temporarily held this morning for a surgery, per nursing. Pt's previously on Glucerna 1.2 Benny 30 ml/hr to provide 864 kcal, 43 gms pro and 580 ml free water. Noted pt's for active Surgical and GI consults. Est. Needs: 1500 kcal to 1900 kcal (25-30 kcal/kgBW), 60 gms to 76 gms pro (0.8-1.0 gms/kgBW). Will continue to monitor pertinent labs and reassess nutrient need prn Labs: Gluc 108 H, Cl 114 H, BUN 36 H Cr 3.56 H; Tpro 5.0 L, Alb 2.1 L. Skin: Kenrick scale 11, high risk, pt's left buttocks MASD, Rt heel DTI, with multiple skin tears and blisters per RN doc. Pls refer to latest company accountant's notes for details re: tx plans. GI: Pt had 20 ml stool output this morning per chicken and fish butcher. PES: Increased nutrient needs r/t current chronic medical condition aeb intubated, sedated, ESRD for possible HD, sever hypoalbuminemia, NPO. Altered nutrition related lab values r/t current/chronic medical condition aeb hyperglycemia, hypernatremia, hypkalemia, hyperchloremia, elev.renal labs, LFTs, hyperbilirubinemia, hypocalcemia and severe hypoalbuminemia Will continue to monitor NPO status, skin status, pertinent labs and weight trend. F/u in 2 to 3 days. Rec.: 1.) If still NPO, consider to resume EN support of Glucerna 1.2 Benny @ 60 ml/hr goal rate as tolerated. 2.) If Albumin level continues trending down with improved renal labs, consider Prostat 1 pkt BID. 3.) Consider daily MVI with minerals and Asc acid 500 mgs BID. 4.) Advance gradually to oral diet when medically appropriate. 5.) Refer to RD for further nutrition educ. and weight monitoring upon discharge. 6.) Continue current plan of care.
--- NOTE | 2019-05-27 13:10 | NUR ---
PT TAKEN TO OPERATING ROOM FOR TRACH AND PEG PLACEMENT PER FARHAN FATIMA RN
[2019-05-27] MEDS ORDERED: ROCURONIUM 10MG/ML 10ML VIAL IV ONE (13:14)
[2019-05-27] MEDS ORDERED: MIDAZOLAM HCL 1MG/1ML-2 ML VIAL IV PRN (13:45)
[2019-05-27] MEDS ORDERED: HYDROmorphone HCL 2 MG/ML VL IV PRN (13:45)
[2019-05-27] MEDS ORDERED: MORPHINE SULFATE INJECTION 1 ML ONE (13:50)
[2019-05-27] MEDS ORDERED: MIDAZOLAM HCL 1MG/1ML-2 ML VIAL ONE (14:04)
--- NOTE | 2019-05-27 14:10 | NUR ---
PT RETURNED BACK FROM OPERATING ROOM. PT IS SEDATED PER MEDICATIONS DURING PROCEDURE. PT HAS SIZE 8 TRACH AND PEG TUBE TO LEFT QUADRANT OF STOMACH. MINIMAL BLEEDING AT INSERTION SIGHT OF PEG TUBE WITH GAUZE DRESSING AROUND SITE. DR. CADENA AWARE OF BLEEDING. WILL CONTINUE TO MONITOR
--- NOTE | 2019-05-27 16:00 | NUR ---
COOLING MEASURES INITIATED
--- NOTE | 2019-05-27 17:00 | NUR ---
PT IS MORE ALERT AND AWAKE AND FOLLOWS SOME COMMANDS
[2019-05-27] MEDS ORDERED: cloNIDine HCL 0.1 MG TAB PO PRN ×2 (17:15→18:00)
--- NOTE | 2019-05-27 19:10 | NUR ---
CLOSING NOTE SHIFT REPORT GIVEN AND CARE ENDORSED TO FELICIANO DUMONT
--- NOTE | 2019-05-27 19:15 | NUR ---
OPENING NOTES ASSUMED CARE, LAYING ON BED, OFF SEDATION BUT OPENS EYES TO VOICE BUT NOT FOLLOWING COMMANDS, STILL ON VENT CONNECTED TO TRACHEOSTOMY, FORCEFUL COUGH STILL NOTED OCCASIONALLY, PEG TUBE IN PLACE BUT STILL UNABLETO USE IT UNTIL TOMORROW, THORNTON CATHETER DRAINING TO A CLEAR URINE, FLEXISEAL IN PLACE, SEE INTERVENTION FOR SKIN ASSESSMENT. BED IN LOWEST POSITION WITH SIDE RAILS UP, BED ALARM ON. WILL CONTINUE CARE.
[2019-05-27] MEDS: PROPOFOL 100 ML IV SCH (21:03)
[2019-05-27] MEDS: hydrALAZINE HCL 20 MG/ML VL IV PRN (21:33)
[2019-05-27] MEDS: CARVEDILOL 3.125 MG TAB PO SCH (22:00)
--- NOTE | 2019-05-27 22:02 | NUR ---
PILLS HELD PER PEG TUBE. STILL UNABLE TO ACCESS PEG TUBE UNTIL TOMORROW. HYDRALAZINE 10 MG IV GIVEN PRN FOR SBP > 160.
[2019-05-28] VITALS (102 sets, daily range): BP systolic 125–187; BP diastolic 69–98
--- NOTE | 2019-05-28 | NUR ---
HELD FREE WATER, PEG TUBE STILL NOT ADVISABLE TO USE AT THIS TIME
[2019-05-28] MEDS: D5W 5% 1,000 ML IV SCH (00:05)
--- NOTE | 2019-05-28 00:14 | NUR ---
temp 100.1, cooling measures done
--- NOTE | 2019-05-28 03:30 | NUR ---
Patient bathe/linen change Patient given complete bath. Skin integrity assessed for any changes. Full linens and gown changed. Patient repositioned for comfort.
[2019-05-28 04:00] LABS: Hematocrit 34.6 % (41.0-53.0); Hemoglobin 11.9 g/dL (13.5-17.5); Mean Corpuscular Hgb Conc. 34.2 g/dL (32.0-36.0); Mean Corpuscular Volume 96.3 fL (80.0-100.0); Platelet Count (auto) 328 10^3/uL (140-450); Red Blood Cells 3.59 10^6/uL (4.5-5.90); Red Cell Distribution Width 13.1 % (11.8-14.3)
[2019-05-28 04:22] LABS: Calcium 9.4 mg/dL (8.5-10.1); Potassium 3.9 mmol/L (3.5-5.1)
[2019-05-28 04:25] LABS: BUN/Creatinine Ratio 12.2
[2019-05-28 04:29] LABS: Band Neutrophils % (manual) 0; Basophils % (manual) 0 (0.0-2.0); Blast Cells 0; Eosinophils % (manual) 0 (0-7); Metamyelocytes % 0; Myelocytes % 0; Promyelocytes % 0; Reactive Lymphocytes 0
[2019-05-28 04:47] LABS: Lymphocytes % (manual) 2 (10.0-50.0); Monocytes % (manual) 3 (0-12)
[2019-05-28] MEDS: FREE WATER GT SCH ×5 (06:00→22:41)
[2019-05-28] MEDS: CALCIUM ACETATE 667 MG CAP NG SCH ×3 (06:00→22:00)
[2019-05-28] MEDS: hydrALAZINE HCL 20 MG/ML VL IV PRN ×2 (06:07→11:05)
--- NOTE | 2019-05-28 08:10 | NUR ---
DR. FERRARO HERE TO SEE PATIENT. SEE MD NOTES/EMR FOR ANY NEW ORDERS. DR. FERRARO TOLD ABOUT PATIENT HAVING SMALL AMOUNT SEROSANGUINEOUS DRAINAGE FROM HEAD ARE. DR. FERRARO LOOKED AT PATIENTS HEAD.
[2019-05-28] MEDS: cefTRIAXone 1GM/50ML D5W 50 ML IV SCH (08:28)
--- NOTE | 2019-05-28 09:15 | NUR ---
DR. CADENA HERE TO SEE PATIENT. SEE MD NOTES/EMR FOR ANY NEW ORDERS. ALERTED DR. CADENA THAT PATIENT HAS BEEN HAVING BLOOD COMING FROM PEG TUBE STOMA SIGHT. DR. CADENA STATES TO NOT USE PEG TUBE TODAY AND LET STOMA SITE HEAL.
[2019-05-28] MEDS ORDERED: METOCLOPRAMIDE HCL 5MG/ml INJ 2ml VIAL IV ONE (09:30)
[2019-05-28] MEDS: hydrALAZINE HCL 10 MG TAB PO SCH ×2 (10:00→22:00)
[2019-05-28] MEDS: amLODIPine BESYLATE 5 MG TAB PO SCH (10:00)
[2019-05-28] MEDS: CARVEDILOL 3.125 MG TAB PO SCH ×2 (10:00→22:00)
[2019-05-28] MEDS: PANTOPRAZOLE 40 MG/10 ML VIAL INJ IV SCH ×2 (10:19→21:43)
--- NOTE | 2019-05-28 10:30 | NUR ---
DR. FLANNERY HERE TO SEE PATIENT. SEE MD NOTES/EMR FOR ANY NEW ORDERS
--- NOTE | 2019-05-28 12:20 | NUR ---
DR. METZ HERE TO SEE PATIENT. SEE MD NOTES/EMR FOR ANY NEW ORDERS
[2019-05-28] MEDS: METOCLOPRAMIDE HCL 5MG/ml INJ 2ml VIAL IV SCH ×2 (14:00→21:43)
[2019-05-28] MEDS: MORPHINE SULF INJ 2 MG/ML SYRINGE 1ML IV PRN (16:32)
--- NOTE | 2019-05-28 18:40 | NUR ---
RT NOTE RECEIVED PT TRACHED AND ON VENT V6 ON STATED SETTINGS. VENT IS PLUGGED TO RED OUTLET. ALARMS ARE ON AND AUDIBLE TO NURSING. AMBU BAG AT BEDSIDE AND CONNECTED TO O2 SOURCE. 8.0 SHILEY SCARRER TRACH IS SECURED WITH SURGICAL TRACH TIES AND SUTURE. BS ARE CLEAR. PT WAS SUCTIONED FOR SMALL RETURN FROM TRACH AND MODERATE RETURN ORALLY. CO2 MONITOR NOT READING CORRECTLY, LINES CHANGED AND GOOD WAIVE FORM NOTED. CIRCUIT TEMP 33.7, etCO2 35 Addendum: 05/28/19 at 1919 by Rosa Guardado RT Amended: Links added.
--- NOTE | 2019-05-28 19:15 | NUR ---
OPENING NOTES ASSUMED CARE, AWAKE BUT WITH BLANK STARES AND DOESN'T FOLLOW VERBAL COMMANDS, STILL ON VENT VIA TRACHEOSTOMY, MODERATE AMOUNT OF CREAMY SECRETIONS BOTH ORAL AND THRU TRACH NOTED, LEFT IJ CENTRAL LINE PATENT AND INTACT, THORNTON CATHETER DRAINING TO A CLEAR URINE. BED IN LOWEST POSITION WITH SIDE RAILS UP, BED ALARM ON. WILL CONTINUE CARE.
--- NOTE | 2019-05-28 20:01 | NUR ---
RT NOTE ROUTINE VENT CHECK DONE. PT TRACHED AND ON VENT V6 ON STATED SETTINGS. VENT IS PLUGGED TO RED OUTLET. ALARMS ARE ON AND AUDIBLE TO NURSING. AMBU BAG AT BEDSIDE AND CONNECTED TO O2 SOURCE. 8.0 SHILEY AIRPORT SECURITY SCREENER TRACH IS SECURED WITH SURGICAL TRACH TIES AND SUTURE. BS ARE CLEAR. CO2 MONITOR NOTED. CIRCUIT TEMP 34.1, etCO2 33 Addendum: 05/28/19 at 2034 by Rosa Guardado RT Amended: Links added.
--- NOTE | 2019-05-28 20:10 | NUR ---
TEMP 100.2, COOLING MEASURES DONE
[2019-05-28] MEDS: PROPOFOL 100 ML IV SCH (21:03)
--- NOTE | 2019-05-28 22:30 | NUR ---
RT NOTE ROUTINE VENT CHECK DONE. PT TRACHED AND ON VENT V6 ON STATED SETTINGS. VENT IS PLUGGED TO RED OUTLET. ALARMS ARE ON AND AUDIBLE TO NURSING. AMBU BAG AT BEDSIDE AND CONNECTED TO O2 SOURCE. 8.0 SHILEY AUDITOR IN CHARGE TRACH IS SECURED WITH SURGICAL TRACH TIES AND SUTURE. BS ARE CLEAR. PT SUCTIONED FOR SMALL RETURN. SPARE TRACH AT BEDSIDE. CO2 MONITOR NOTED.CIRCUIT TEMP 34.1, etCO2 34 Addendum: 05/28/19 at 2327 by Rosa Guardado RT Amended: Links added.
[2019-05-29] VITALS (77 sets, daily range): BP systolic 107–204; BP diastolic 51–99
[2019-05-29] MEDS: D5W 5% 1,000 ML IV SCH (00:17)
--- NOTE | 2019-05-29 00:25 | NUR ---
RT NOTE ROUTINE VENT CHECK DONE. PT TRACHED AND ON VENT V6 ON STATED SETTINGS. VENT IS PLUGGED TO RED OUTLET. ALARMS ARE ON AND AUDIBLE TO NURSING. AMBU BAG AT BEDSIDE AND CONNECTED TO O2 SOURCE. 8.0 SHILEY FIELD CAPTAIN TRACH IS SECURED WITH SURGICAL TRACH TIES AND SUTURE. BS ARE CLEAR. PT SUCTIONED FOR SMALL RETURN. SPARE TRACH AT BEDSIDE.PT HAS SEVERE HICCUPS NOTED. CO2 MONITOR NOTED.CIRCUIT TEMP 34.1, etCO2 37 Addendum: 05/29/19 at 0036 by Rosa Guardado RT Amended: Links added.
--- NOTE | 2019-05-29 02:10 | NUR ---
RT NOTE ROUTINE VENT CHECK DONE. PT TRACHED AND ON VENT V6 ON STATED SETTINGS. VENT IS PLUGGED TO RED OUTLET. ALARMS ARE ON AND AUDIBLE TO NURSING. AMBU BAG AT BEDSIDE AND CONNECTED TO O2 SOURCE. 8.0 SHILEY FABRIC WORKER TRACH IS SECURED WITH SURGICAL TRACH TIES AND SUTURE. BS ARE CLEAR. PT SUCTIONED FOR SMALL RETURN. SPARE TRACH AT BEDSIDE. OBTURATOR AT HEAD OF BED. PT HAS HICCUPS NOTED. WATER LEVEL ADEQUATE IN HUMIDIFIER. TRACH CARE DONE WITHOUT INCIDENT. OMNI FLEX AND INLINE SUCTION CHANGED WITHOUT INCIDENT. TRACH STAY ADDED. CO2 MONITOR NOTED.CIRCUIT TEMP 34.0, etCO2 35 Addendum: 05/29/19 at 0241 by Rosa Guardado RT Amended: Links added.
--- NOTE | 2019-05-29 03:00 | NUR ---
MORNING CARE/ ORAL HYGIENE CLEANSED, SACRAL OPTIFOAM CHANGED, SKIN REASSESSED FOR ANY CHANGES, SACRAL OPTIFOAM CHANGED, REPOSITIONED FOR COMFORT. ORAL HYGIENE DONE.
[2019-05-29 03:43] LABS: Basophils # (auto) 0 uL; Basophils % (auto) 0.3 % (0.0-2.0); Eosinophils # (auto) 0.1 uL; Eosinophils % (auto) 0.4 % (0.0-7.0); Hematocrit 33.3 % (41.0-53.0); Hemoglobin 11.2 g/dL (13.5-17.5); Lymphocytes # (auto) 0.9 uL; Lymphocytes % (auto) 5.9 % (10.0-50.0); Mean Corpuscular Hemoglobin 32.8 pg (28.0-32.0); Mean Corpuscular Hgb Conc. 33.7 g/dL (32.0-36.0); Mean Corpuscular Volume 97.3 fL (80.0-100.0); Monocytes # (auto) 1.6 uL; Monocytes % (auto) 10.4 % (0.0-12.0); Neutrophils # (auto) 12.4 uL; Platelet Count (auto) 330 10^3/uL (140-450); Red Blood Cells 3.42 10^6/uL (4.5-5.90)
[2019-05-29 03:58] LABS: Calcium 9.4 mg/dL (8.5-10.1); Potassium 3.6 mmol/L (3.5-5.1)
--- NOTE | 2019-05-29 04:18 | NUR ---
RT NOTE ROUTINE VENT CHECK DONE. PT TRACHED AND ON VENT V6 ON STATED SETTINGS. VENT IS PLUGGED TO RED OUTLET. ALARMS ARE ON AND AUDIBLE TO NURSING. AMBU BAG AT BEDSIDE AND CONNECTED TO O2 SOURCE. 8.0 SHILEY FOSTER PARENT TRACH IS SECURED WITH JAMAL TRACH TIES. PT SUCTIONED FOR SMALL RETURN. SPARE TRACH AT BEDSIDE.OBTURATOR AT HEAD OF BED. PT HAS HICCUPS NOTED. WATER LEVEL ADEQUATE IN HUMIDIFIER. CO2 MONITOR NOTED.CIRCUIT TEMP 33.0, etCO2 37 Addendum: 05/29/19 at 0436 by Rosa Guardado RT Amended: Links added.
[2019-05-29] MEDS: FREE WATER GT SCH ×3 (05:01→17:42)
[2019-05-29] MEDS: CALCIUM ACETATE 667 MG CAP NG SCH ×3 (05:02→21:39)
[2019-05-29] MEDS: METOCLOPRAMIDE HCL 5MG/ml INJ 2ml VIAL IV SCH ×3 (06:37→21:38)
--- NOTE | 2019-05-29 06:51 | NUR ---
CLOSING NOTES LAYING ON BED WITH HIS EYES CLOSED WITH NO SIGNS OF DISTRESS. VS STABLE, LATEST TEMP 99.4, BP 140/78, HR 71, SPO2 100%.
[2019-05-29] MEDS: cefTRIAXone 1GM/50ML D5W 50 ML IV SCH (08:58)
[2019-05-29] MEDS: PANTOPRAZOLE 40 MG/10 ML VIAL INJ IV SCH (09:40)
[2019-05-29] MEDS: CARVEDILOL 3.125 MG TAB PO SCH ×3 (09:41→22:20)
[2019-05-29] MEDS: hydrALAZINE HCL 10 MG TAB PO SCH ×3 (09:41→22:19)
[2019-05-29] MEDS: amLODIPine BESYLATE 5 MG TAB PO SCH (09:41)
--- NOTE | 2019-05-29 11:27 | NUR ---
Nutrition Follow-up Notes Wt.: 64.3 kg today. Pt's s/p Tracheostomy, EGD with PEG tube placement (05/27/19), currently NPO, no order to resume EN support yet at this time, per nursing. Pt's previously on Glucerna 1.2 Benny 30 ml/hr to provide 864 kcal, 43 gms pro and 580 ml free water. Est. Needs: 1500 kcal to 1900 kcal (25-30 kcal/kgBW), 60 gms to 76 gms pro (0.8-1.0 gms/kgBW). Will continue to monitor pertinent labs and reassess nutrient need prn Labs: Cl 111 H, BUN 35 H Cr 2.70 H (trending down); Tpro 5.0 L, Alb 2.1 L. Skin: Kenrick scale 11, high risk, pt's left buttocks MASD, Rt heel DTI, with multiple skin tears and blisters per RN doc. Pls refer to latest or nurse manager's notes for details re: tx plans. GI: Pt had 20 ml stool output this morning per plate maker. PES: Increased nutrient needs r/t current chronic medical condition aeb intubated, sedated, ESRD for possible HD, sever hypoalbuminemia, NPO. Altered nutrition related lab values r/t current/chronic medical condition aeb hyperglycemia, hypernatremia, hyperkalemia, hyperchloremia, elev.renal labs, LFTs, hyperbilirubinemia, hypocalcemia and severe hypoalbuminemia Will continue to monitor NPO status, skin status, pertinent labs and weight trend. F/u in 2 to 3 days. Rec.: 1.) If still NPO, consider to resume EN support of Glucerna 1.2 Benny @ 60 ml/hr goal rate via PEG as tolerated when medically appropriate. 2.) If Albumin level continues trending down with improved renal labs, consider Prostat 1 pkt BID. 3.) Consider daily MVI with minerals and Asc acid 500 mgs BID. 4.) If gluc level consistently wnl, with renal labs remains elev., consider Jevity 1.2 Benny @ 65 ml/hr goal rate as tolerated if medically appropriate. 5.) Refer to RD for further nutrition educ. and weight monitoring upon discharge. 6.) Continue current plan of care.
--- NOTE | 2019-05-29 17:00 | NUR ---
PLACED PT ON CA OF 30% AT 10LPM. SPO2 100% HR 84, BP 160/84. SX COPIOUS AMOUNTS OF THICK SECRETIONS. PT COLETTE. WELL . ORDERS FROM DR. METZ TO PLACED PT ON VENT AT NIGHT AND CA AT DAY TIME COLETTE. REPORTED TO NOC RT.
--- NOTE | 2019-05-29 19:10 | NUR ---
Discharge planning per consult, patient has orders to discharge to an LTAC for a higher level of care. Referral was sent to [facility]. Patient has emergency medical pending; however no official insurance at this time. [facility] will follow up over the weekend if patient will be evaluated for discharge by either facility, will otherwise follow up on 06.01.19. Addendum: 05/29/19 at 1930 by MIRA OJ Referral also sent to [facility] and [facility] for evaluation.
--- NOTE | 2019-05-29 20:00 | NUR ---
Initial Assessment Patient received from ICU without incident and connected to bedside monitors. HOB elevated greater than 30 degrees for aspiration precautions. Patient opens eyes spontaneously but does not track or follow commands. Rigidity and abnormal flexion noted; appears to posture with stimulation. [place] boots intact to feet. RR even and unlabored with equal rise and fall although tachypneic on trach collar. Patient has hyperactive cough with thick/pink tinged secretions noted. Ambu bag at bedside, oral care and suction rendered. PED tube clamped-ok to use per Dr. Fajardo. LIJ TLC intact and patent with no s/s of infiltration or phlebitis noted. Abd soft. F/C intact and draining yellow urine to gravity. Rectal tube draining liquid/brown stool to gravity. Optifoam gentle adhesive dressing CDI to sacral area and patient on specialty mattress per wound care order. SCD's intact to BLE. Neurovascular status intact with palpable distal pulses x4 extremities, skin warm to touch, and capillary refill brisk. Bed in lowest position, side rails up, bed brakes set, all alarms audible, in direct view of nurses station. Continue close monitoring.
[2019-05-29] MEDS: hydrALAZINE HCL 20 MG/ML VL IV PRN (20:23)
[2019-05-29] MEDS: MORPHINE SULF INJ 2 MG/ML SYRINGE 1ML IV PRN (20:30)
--- NOTE | 2019-05-29 20:30 | NUR ---
Hospitalist paged re: vital sign changes. Waiting for call back.
--- NOTE | 2019-05-29 20:34 | NUR ---
Hospitalist called back Informed of HTN, tachycardia despite Hydralazine and Morphine administration. He ordered: -5mg IV Lopressor x1 now. RN performed TORB and verified order to be correct. No additional orders received.
[2019-05-29] MEDS ORDERED: METOPROLOL TARTRATE 1MG/1ML-5ML VIAL IV ONE (20:45)
--- NOTE | 2019-05-29 22:00 | NUR ---
Tube feeding initiated Order to start Jevity with goal rate of 65ml/hour. HOB elevated greater than 30 degrees. Jevity tube feeding started a 10ml/hour. RN will monitor residuals per protocol.
[2019-05-29] MEDS: Jevity 1.2 Cal/Fiber 1 Liter GT SCH (22:10)
[2019-05-30] VITALS (30 sets, daily range): BP systolic 117–148; BP diastolic 50–84
--- NOTE | 2019-05-30 00:25 | NUR ---
PT ASSESSED, RR 20, HR 76, BP 117/50. NO SOB NOTED.
--- NOTE | 2019-05-30 01:00 | NUR ---
Ongoing assessment tube feeding residual re-checked and it is 10ml. Tube feeding increased to 20ml/hour. HOB remains elevated greater than 30 degrees. Remains off ventilator and tolerating well with RR even and unlabored with equal rise and fall and no s/s of distress, SOB, or accessory muscle use noted. Appears comfortable but extremities remain regid. Being turned, all bony prominences and heels offloaded with pillows, skin is clean and dry. Neurovascular status remains intact and unchanged. Patient remains able to open eyes but does not follow any commands or track. No S/S of distress or pain noted. Vitals stable. Continue close monitoring.
--- NOTE | 2019-05-30 04:00 | NUR ---
Tube feeding Residual re-checked and it is 20ml. Tube feedings increased to 30ml/hour in attempt to get to goal rate of 65ml/hour.
--- NOTE | 2019-05-30 04:30 | NUR ---
TRACH CARE DONE, AIRWAY SECURED AND PATENT. NO REDNESS OR SORES AROUND TRACH SITE NOTED.PT IS AWAKE WITH OPEN EYES, NO SOB. SXNED MODERATE AMOUNT OF THICK BLOODY SECRETIONS. PT HAS STRONG COUGH. SAT 100% ON 30% FIO2. HR 92, RR 24
[2019-05-30] MEDS: CALCIUM ACETATE 667 MG CAP NG SCH ×3 (05:07→21:21)
[2019-05-30] MEDS: FREE WATER GT SCH ×4 (05:30→17:37)
[2019-05-30] MEDS: METOCLOPRAMIDE HCL 5MG/ml INJ 2ml VIAL IV SCH ×3 (05:31→21:43)
[2019-05-30 05:35] LABS: Basophils # (auto) 0.1 uL; Basophils % (auto) 0.6 % (0.0-2.0); Eosinophils # (auto) 0.2 uL; Eosinophils % (auto) 1.8 % (0.0-7.0); Hemoglobin 11.7 g/dL (13.5-17.5); Lymphocytes # (auto) 1.1 uL; Lymphocytes % (auto) 9.6 % (10.0-50.0); Mean Corpuscular Hemoglobin 32.6 pg (28.0-32.0); Mean Corpuscular Hgb Conc. 33.4 g/dL (32.0-36.0); Mean Corpuscular Volume 97.7 fL (80.0-100.0); Monocytes # (auto) 1.3 uL; Monocytes % (auto) 11.2 % (0.0-12.0); Neutrophils # (auto) 8.7 uL; Neutrophils % (auto) 76.8 % (37.0-80.0); Nucleated Red Blood Cells % 0.1 %; Platelet Count (auto) 315 10^3/uL (140-450); Red Blood Cells 3.58 10^6/uL (4.5-5.90); Red Cell Distribution Width 13.6 % (11.8-14.3); White Blood Cell 11.4 10^3/uL (4.4-10.8)
[2019-05-30 05:47] LABS: Potassium 3.9 mmol/L (3.5-5.1)
[2019-05-30 05:53] LABS: BUN/Creatinine Ratio 16.7; Calcium 9.8 mg/dL (8.5-10.1); Phosphorus 5.3 mg/dL (2.5-4.90)
--- NOTE | 2019-05-30 06:06 | NUR ---
Report given Care endorsed to TIM Jones. Patient continues to rest with no s/s of distress or pain, all vitals stable. HOB elevated greater than 30 degrees.
--- NOTE | 2019-05-30 07:30 | NUR ---
RECEIVED PATIENT SITTING UP IN THE BED, NON RESPONSIVE, WILL NOT FOLLOW COMMANDS AND DOESN'T OPEN HIS EYES NO VERBAL RESPONSE, O2 BY THE TRACH COLLAR AT 10L AND 30%, PATIENT HAS A SIZE 8 SHILEY TO THE THROAT, PEG TUBE TO THE UPPER ABD WITH JEVITY INFUSING AT 30ML/HR BY THE FEEDING PUMP, LIJ TLC FLUSHED AND PATENT WITH 3 LUMENS, FLEXI SEAL TO THE RECTUM, SCD'S TO CHEYENNE LEGS,
--- NOTE | 2019-05-30 07:30 | NUR ---
END OF SHIFT REPORT GIVEN AND CARE ENDORSED TO CHANO DUMONT
--- NOTE | 2019-05-30 08:30 | NUR ---
PATIENT IS ON PEG TUBE FEEDING OF JEVITY AT 30ML/HR INFUSING BY THE FEEDING PUMP,
[2019-05-30] MEDS: cefTRIAXone 1GM/50ML D5W 50 ML IV SCH (09:16)
--- NOTE | 2019-05-30 09:30 | NUR ---
NARGIS SITTING UP IN THE BED, O2 BY THE TRACH COLLAR , NO CHANGE Addendum: 05/30/19 at 1632 by Shasha Bennett RN CASTILLO FOR THE SPELLING
--- NOTE | 2019-05-30 10:30 | NUR ---
DR LLANES INTO SEE THE PATIENT
[2019-05-30] MEDS: hydrALAZINE HCL 10 MG TAB PO SCH ×2 (10:43→21:44)
[2019-05-30] MEDS: CARVEDILOL 3.125 MG TAB PO SCH ×2 (10:45→21:21)
--- NOTE | 2019-05-30 10:45 | NUR ---
EXPLAIN MEDICATIONS TO THE PATIENT EVEN THOUGH HE IS UNABLE TO UNDERSTAND AND MED GIVEN ORDERED
--- NOTE | 2019-05-30 11:15 | NUR ---
SISTER IN TO SEE THE PATIENT
--- NOTE | 2019-05-30 11:30 | NUR ---
DR FERRARO IN TO SEE THE PATIENT AND SPOKE WITH THE SISTER REGARDING THE POC
--- NOTE | 2019-05-30 12:30 | NUR ---
PATIENT FEEDING INCREASED TO 35ML/HR BY THE FEEDING PUMP, NO RESIDUAL
--- NOTE | 2019-05-30 13:30 | NUR ---
NO CHANGE IN CONDITION , STILL NO RESPONSE
[2019-05-30] MEDS: amLODIPine BESYLATE 5 MG TAB PO SCH (13:45)
--- NOTE | 2019-05-30 14:35 | NUR ---
TRACH CARE DONE WITH NO INCIDENT REPORTED. PT ON TRACH COLLAR 35% FIO2 AT 10LPM. PT COLETTE. WELL.
--- NOTE | 2019-05-30 15:36 | NUR ---
PT ON TRACH COLLAR AT 35% FIO2 AT 10LPM. SPO2 98%, HR 99 WITH DIMINISHED BS. NO SX INDICATED.
--- NOTE | 2019-05-30 16:12 | NUR ---
SISTER LEFT AN WENT HOME
[2019-05-30] MEDS: ACETAMINOPHEN 325 MG TAB PO PRN (16:18)
--- NOTE | 2019-05-30 16:25 | NUR ---
TYLENOL GIVEN FOR TEMP 100'4
--- NOTE | 2019-05-30 16:44 | NUR ---
PATIENT GOING TO X-RAY FOR CT OF THE HEAD
--- NOTE | 2019-05-30 17:15 | NUR ---
BACK FROM THE CT OF THE HEAD AND TOLERATED, PATIENT MOVING THE RT ARM UP AND DOWN BUT NO RESPONSE WHEN TALKING TO HIM, OR FOLLOWING COMMANDS
--- NOTE | 2019-05-30 18:30 | NUR ---
NO CHANGE IN CONDITION, STILL NON RESPONSIVE, TRACH SIZE 8 SHILEY TO THE THROAT WITH TRACH COLLAR AT 30% AND 10L OF O2, TLC TO THE LIJ FLUSHED AND PATENT, DRESSING CHANGED THIS AFTERNOON, THORNTON TO GRAVITY, FLEXI SEAL INTACT TO THE RECTUM,. SCD'S TO CHEYENNE LEGS, JEVITY INFUSING BY THE FEEDING PUMP AT 40ML/HR INTO THE LUQ PEG TUBE, WILL CONTINUE TO MONITOR AND GIVE REPORT TO THE NEXT SHIFT
--- NOTE | 2019-05-30 19:16 | NUR ---
RT NOTE PT RECEIVED ON 35% FIO2 TRACH COLLAR. PT TOLERATING WELL. TRACH SUCTIONED WITH SMALL THICK WHITE SECRETIONS RETURNED. PT SAT 100%, CR 74, RR 20, BP 117/71.
--- NOTE | 2019-05-30 20:00 | NUR ---
SHIFT OPENING NOTE RECEIVED PATIENT LAYING IN BED WITH EYES OPEN. MOVES HEAD, BLINKS EYES, AND DOES NOT TRACK. ON TRACH COLLAR 10 L 35% FI02. POX 100%. SUCTIONED PINK THICK SECRETIONS FROM TRACH. PEG TUBE INFUSING JEVITY AT 40 ML/H, 10 ML OF RESIDUALS NOTED. FLEXISEAL IN PLACE DRAINING STOOL. THORNTON CATH IN PLACE DRAINING YELLOW URINE TO GRAVITY. LIJ SALINE LOCKED. PHYSICAL ASSESSMENT COMPLETED, SEE INTERVENTIONS. WILL CLOSELY MONITOR.
--- NOTE | 2019-05-30 23:46 | NUR ---
RT NOTE PT NOT PLACED ON VENT FOR NOC. PT ON TRACH COLLAR AND SATING WELL. CR AND RR ARE IN NORMAL LIMITS. PT DID NOT TOLERATE THE VENT LAST NIGHT AND BECAME VERY TACHY, CR AND RR. RT WILL CONTINUE TO MONITOR CLOSELY TO SEE IF THE PT WILL NEED TO BE PLACED ON VENT. CR 89, RR 18, SPO2 100.
[2019-05-31] VITALS (7 sets, daily range): BP systolic 120–142; BP diastolic 72–92
[2019-05-31] MEDS: FREE WATER GT SCH ×5 (00:28→23:45)
--- NOTE | 2019-05-31 02:05 | NUR ---
MORNING HYGIENE CARE FULL BED BATH PERFORMED USING CHG WIPES AND WARM SOAPY WASH CLOTHES. GOWN CHANGED. OPTIFOAM DRESSING CHANGED FROM SACRUM. FULL LINEN CHANGE. PATIENT REPOSITIONED FOR COMFORT. TOLERATED IT WELL.
[2019-05-31] MEDS: CALCIUM ACETATE 667 MG CAP NG SCH ×3 (04:33→22:00)
--- NOTE | 2019-05-31 04:41 | NUR ---
RT NOTE TRACH CARE COMPLETED. INCLUDING REPLACING TRACH MASK WITH A NEW ONE. PT SUCTIONED WITH MOD RETURN OF THICK WHITE/CLEAR SECRETIONS. WATER REPLACED. PT TOLERATING WELL.
[2019-05-31] MEDS: METOCLOPRAMIDE HCL 5MG/ml INJ 2ml VIAL IV SCH ×3 (05:11→21:55)
[2019-05-31] MEDS: ACETAMINOPHEN 325 MG TAB PO PRN (05:12)
[2019-05-31 05:17] LABS: Basophils # (auto) 0.1 uL; Monocytes # (auto) 1.2 uL
[2019-05-31 05:21] LABS: Basophils % (auto) 1.2 % (0.0-2.0); Eosinophils # (auto) 0.1 uL; Eosinophils % (auto) 1.2 % (0.0-7.0); Hematocrit 37.1 % (41.0-53.0); Hemoglobin 12.6 g/dL (13.5-17.5); Lymphocytes # (auto) 1.2 uL; Lymphocytes % (auto) 11.3 % (10.0-50.0); Mean Corpuscular Hemoglobin 33.4 pg (28.0-32.0); Mean Corpuscular Hgb Conc. 34.1 g/dL (32.0-36.0); Mean Corpuscular Volume 98.1 fL (80.0-100.0); Monocytes % (auto) 11.3 % (0.0-12.0); Neutrophils # (auto) 8.2 uL; Platelet Count (auto) 474 10^3/uL (140-450); Red Blood Cells 3.78 10^6/uL (4.5-5.90); Red Cell Distribution Width 13.5 % (11.8-14.3); White Blood Cell 10.9 10^3/uL (4.4-10.8)
[2019-05-31 05:39] LABS: INR 1.18 (0.9-1.15); Partial Thromboplastin Time 28.5 sec (23.64-32.05)
--- NOTE | 2019-05-31 05:48 | NUR ---
PT ON TRACH COLLAR AND COLETTE. WELL. SPO2 97%, HR 96, BP 142/85, RR 21. NO DISTRESS NOTED. WILL CONTINUE TO MONITOR PT.
--- NOTE | 2019-05-31 07:20 | NUR ---
END OF SHIFT PATIENT REMAINS LAYING IN BED WITH EYES OPEN. NO CHANGES IN MENTAL STATUS. REPORT GIVEN AND CARE ENDORSED TO CHRSITIANO DUMONT.
--- NOTE | 2019-05-31 07:45 | NUR ---
Opening Shift Note Assumed care of patient, patient lying on the bed, open his eyes with pain stimulation. No S/S of distress/SOB or pain, will continue to monitor for changes Q1hr and PRN. Mouth care provided, position changed, deep suction provided as well.
[2019-05-31 08:17] LABS: Magnesium 2.4 mg/dL (1.6-2.6); Potassium 4.3 mmol/L (3.5-5.1)
[2019-05-31 08:21] LABS: BUN/Creatinine Ratio 18.8; Bilirubin, Total 0.5 mg/dL (0.2-1.0); Phosphorus 4.9 mg/dL (2.5-4.90); Total Protein 8.8 g/dL (6.4-8.2)
--- NOTE | 2019-05-31 09:50 | NUR ---
Mouth care provided, position changed, PEG no content noted, increased Jevity to 50 ml/hr, will continue to monitor and care.
[2019-05-31] MEDS: cefTRIAXone 1GM/50ML D5W 50 ML IV SCH (09:54)
[2019-05-31] MEDS: CARVEDILOL 3.125 MG TAB PO SCH ×2 (09:55→22:06)
[2019-05-31] MEDS: amLODIPine BESYLATE 5 MG TAB PO SCH (09:55)
[2019-05-31] MEDS: hydrALAZINE HCL 10 MG TAB PO SCH ×2 (09:56→22:05)
--- NOTE | 2019-05-31 10:00 | NUR ---
Dr. Medina at the bedside, seen patient at this time, no new order, will continue to monitor and care.
--- NOTE | 2019-05-31 11:50 | NUR ---
Wound care nurse at the bedside, Position changed, mouth care provided, deep suction provided. His families at the bedside, speak only Setswana. Tolerated tube feeding well, free water given. Will continue to monitor and care.
--- NOTE | 2019-05-31 11:58 | NUR ---
WOUND CARE NOTE: Wound care in to see patient for reevaluation of wounds and skin integrity monitoring. Patient continue resting in SDU bed in Rm. 264. Patient is awake but non-verbal. His current Kenrick score is 13. He's on O2 via trach collar. Patient appears to be in no pain using García Maldonado Faces pain Scale however mild pain noted upon turning. Skin assessment done with the assistance of patient's nurse, TIM Sinclair. Patient continue to have rectal tube in placed with liquid stools in tubing and in bag. Ecchymosis to L buttock looks fading. MASD to sacrum with skin tear is improving and dry. Blisters to L and R lateral ear pinna has resolved and display intact pink scar tissue. Intact DTI noted to patient's Rt heel (3.5x2.5cm),Rt. lateral foot (1x3cm, 1x2cm) and intact DTI/blood filled blister measuring 5x5cm. Intact brown scab (0.7x0.3cm) noted on patient's Lt lateral ankle. R lateral foot DTI are intact, no drainage/odor noted,left open to air. Reapplied Akash foam boots to patient's BLE. Delmi care give, care pad changed, applied Z Guard cream and covered sacrum with Opti foam sacral dressing. Photograph of wounds are taken for reference. Repositioned patient for comfort facing his Lt side, redistributed pressure points with pillows. Patient is on tube feeding and Dietary is on board. RECOMMENDATION: Continuation of all wound care orders prescribed by MD, continue with skin/wound plan of care, continue monitoring by wound care while patient is hospitalized. Addendum: 05/31/19 at 1655 by Sabra Shelton RN Amended: Links added.
--- NOTE | 2019-05-31 12:48 | NUR ---
Nutrition Follow-up Notes Wt.: 65.5 kg Pt's s/p Tracheostomy, EGD with PEG tube placement currently NPO, on EN support with Glucerna 1.2 Benny 30 ml/hr to provide 864 kcal, 43 gms pro and 580 ml free water. Est. Needs: 1500 kcal to 1900 kcal (25-30 kcal/kgBW), 60 gms to 76 gms pro (0.8-1.0 gms/kgBW). Will continue to monitor pertinent labs and reassess nutrient need prn Labs: BUN 46 H, CREAT 2.45 HM GLU 119 H Skin: Kenrick scale 9, high risk, pt's left buttocks MASD, Rt heel DTI, with multiple skin tears and blisters per RN doc. Pls refer to latest wheel press operator's notes for details re: tx plans. GI: Pt had 30 ml stool output this morning per director radio news. PES: Increased nutrient needs r/t current chronic medical condition aeb intubated, sedated, ESRD for possible HD, sever hypoalbuminemia, NPO. Altered nutrition related lab values r/t current/chronic medical condition aeb hyperglycemia, hypernatremia, hyperkalemia, hyperchloremia, elev.renal labs, LFTs, hyperbilirubinemia, hypocalcemia and severe hypoalbuminemia Will continue to monitor NPO status, EN tolerance, skin status, pertinent labs and weight trend. F/u in 2 to 3 days. Rec.: 1.) Advance EN support of Glucerna 1.2 Benny @ 60 ml/hr goal rate via PEG as tolerated when medically appropriate. 2.) If Albumin level continues trending down with improved renal labs, consider Prostat 1 pkt BID. 3.) Consider daily MVI with minerals and Asc acid 500 mgs BID. 4.) If gluc level consistently wnl, with renal labs remains elev., consider Jevity 1.2 Benny @ 65 ml/hr goal rate as tolerated if medically appropriate. 5.) Refer to RD for further nutrition educ. and weight monitoring upon discharge. 6.) Continue current plan of care.
--- NOTE | 2019-05-31 16:15 | NUR ---
Dr. Cruz at the bedside, plan of care discussed with his family who understand in Greek, will continue to monitor, still waiting for LTAC placement, his family verbalized understanding.
--- NOTE | 2019-05-31 17:37 | NUR ---
Position changed, perineal and carroll's catheter care provided. Trach suction and mouth care provided. Tube feeding no content noted, increased tube feeding to 60 ml/hr, will continue to monitor and care.
--- NOTE | 2019-05-31 18:18 | NUR ---
Respiratory note: PT RECIEVED ON COOL AEROSOL FIO2 35%, 8LPM. PT IS AWAKE AT THIS TIME BUT DOES NOT RESPOND WHEN TALKING TO HIM. NO RESP DISTRESS NOTED. PT HAS A SIZE 8.0 ETT NON-DISPOSABLE CUFFED. SUTURES STILL IN PLACE. NO SKIN BREAKDOWN NOTED. SPO2 99%, HR 102, RR 23. BS CLR/DIM T/O. SXN SCANT THIN WHITE/CLR SECRETIONS. SPARE TRACH AT BEDSIDE. VENT PULLED OUT DUE TO PT NOT WEARING FOR 2 DAYS.
--- NOTE | 2019-05-31 22:46 | NUR ---
Respiratory note: TITRATED FIO2 ON COOL AEROSOL TO 28%. PT TOLERATING WELL AND SPO2 IS AT 99% STILL.
[2019-06-01 00:04] VITALS: BP 124/86
[2019-06-01 04:00] VITALS: BP 133/81
[2019-06-01] MEDS: Jevity 1.2 Cal/Fiber 1 Liter GT SCH (04:00)
--- NOTE | 2019-06-01 04:02 | NUR ---
Respiratory note: TRACH CARE DONE WITH NO COMPLICATIONS NOTED. NO SKIN BREAKDOWN NOTED. AIRWAY IS PATENT AND GAUZE CHANGED AND INNER CANNULA CLEANED. SUTURES STILL IN PLACE AND TRACH IS SECURED WITH NECK TIE. PT REMAINS ON COOL AEROSOL @ 28%, 8LPM. NO RESP DISTRESS NOTED.
[2019-06-01 04:48] LABS: Basophils # (auto) 0 uL; Basophils % (auto) 0.4 % (0.0-2.0); Eosinophils # (auto) 0.2 uL; Eosinophils % (auto) 1.7 % (0.0-7.0); Hematocrit 39.1 % (41.0-53.0); Hemoglobin 13.2 g/dL (13.5-17.5); Lymphocytes # (auto) 1.2 uL; Lymphocytes % (auto) 11.6 % (10.0-50.0); Mean Corpuscular Hemoglobin 32.9 pg (28.0-32.0); Mean Corpuscular Hgb Conc. 33.7 g/dL (32.0-36.0); Mean Corpuscular Volume 97.7 fL (80.0-100.0); Monocytes # (auto) 1.3 uL; Monocytes % (auto) 12.8 % (0.0-12.0); Neutrophils # (auto) 7.4 uL; Neutrophils % (auto) 73.5 % (37.0-80.0); Nucleated Red Blood Cells % 0.1 %; Platelet Count (auto) 422 10^3/uL (140-450); Red Cell Distribution Width 13.4 % (11.8-14.3); White Blood Cell 10.1 10^3/uL (4.4-10.8)
[2019-06-01] MEDS: CALCIUM ACETATE 667 MG CAP NG SCH ×3 (06:00→21:38)
[2019-06-01] MEDS: FREE WATER GT SCH ×5 (06:08→21:39)
[2019-06-01] MEDS: METOCLOPRAMIDE HCL 5MG/ml INJ 2ml VIAL IV SCH (06:14)
--- NOTE | 2019-06-01 07:45 | NUR ---
OPENING Report received from Sky DUMONT. Care initiated and initial assessment completed.
[2019-06-01 08:00] VITALS: BP 133/90
--- NOTE | 2019-06-01 08:31 | NUR ---
Assessment Pt is a 28 yr old male with trach and peg. Pt's , Liza, was bedside and answered questions on pt's behalf. Assessment done through academic computing director. Prior to admit, pt lived in a trailer by himself, on his land lord's property. Pt was ambulatory and independent with ADL's, cooking and cleaning. Pt's and daughter, his mom and sister all live in [place]. Pt only has a few cousins in the area that he is not close with. Pt admitted to the hospital who found unconscious in his home. Pt's was unsure of who found him but thinks it was the land lord. Pt has history with substance abuse and pt's stated that pt was admitted with "high alcohol levels in his blood". Pt's was not there at the time of admit. Pt's suspects foul play, SW redirected pt to call the police department to discuss it with them. Pt stated that she has talked to the Dr about taking him to [place] to take care of him there but stated that the pt is not stable enough to travel that far and needs a higher level of care. ERIK empathized with pt's with the difficulty of the situation. 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 ERIK received report that pt is now set up with [facility] and has received a temporary [facility]. Pt need keno terminal operator acute care. Further needs will be assessed closer to d/c. Addendum: 06/02/19 at 0845 by BRONSON BOWDEN Amended: Links added.
--- NOTE | 2019-06-01 08:45 | NUR ---
TRACH SUCTION Patient has large amount of secretions out via tracheal suction.
--- NOTE | 2019-06-01 09:10 | NUR ---
WOUND CARE Wound care update given by Irma DUMONT.
--- NOTE | 2019-06-01 09:20 | NUR ---
BEDSIDE Dr. Medina bedside. No new orders at this time.
[2019-06-01] MEDS: cefTRIAXone 1GM/50ML D5W 50 ML IV SCH (09:26)
[2019-06-01] MEDS: CARVEDILOL 3.125 MG TAB PO SCH ×2 (09:26→21:38)
[2019-06-01] MEDS: hydrALAZINE HCL 10 MG TAB PO SCH ×2 (09:27→21:38)
[2019-06-01] MEDS: amLODIPine BESYLATE 5 MG TAB PO SCH (09:27)
--- NOTE | 2019-06-01 11:51 | NUR ---
BEDSIDE Patients bedside.
[2019-06-01 12:00] VITALS: BP 130/87
--- NOTE | 2019-06-01 12:08 | NUR ---
BEDSIDE Dr. Young bedside. No new orders received.
--- NOTE | 2019-06-01 12:16 | NUR ---
SPOKE TO She does not know what is best for the patient and wants the patient to be placed in group home care.
--- NOTE | 2019-06-01 13:45 | NUR ---
BAND NAILER BEDSIDE Rhea Reynolds BAND NAILER bedside speaking to patients about longterm care plans.
--- NOTE | 2019-06-01 15:30 | NUR ---
IJ REMOVAL IJ DC'd with sterile technique, catheter fully intact. Pressure dressing applied to site. Patient tolerated procedure well.
[2019-06-01 16:00] VITALS: BP 130/85
--- NOTE | 2019-06-01 16:00 | NUR ---
Respiratory note: SUTURES REMOVED. TRACH CARE DONE AT THIS TIME; STOMA SITE CLEAN/CLEAR AND SHOWING NO REDNESS OR DRAINING. RN MITUL MADE AWARE OF SUTURE REMOVAL. AEROSOL BOTTLE REPLACED.
--- NOTE | 2019-06-01 16:34 | NUR ---
IV INSERTION IV access obtained, via clean sterile technique by inserting 20 gauge catheter at left hand after one attempt. IV secured properly. No trauma to site. Patient tolerated well.
[2019-06-01] MEDS: hydrALAZINE HCL 20 MG/ML VL IV PRN (18:05)
--- NOTE | 2019-06-01 18:55 | NUR ---
PAGED MANAGEMENT INSTRUCTOR Paged crane ladle person MANAGEMENT INSTRUCTOR to ask for Metoprolol or other recommendation for patients sinus tachycardia.
--- NOTE | 2019-06-01 19:10 | NUR ---
SPOKE TO SARABJIT Sarmiento NP ordered 12 lead EKG for patient and stated that he will come see the patient.
--- NOTE | 2019-06-01 19:22 | NUR ---
CLOSING Report given to Steve DUMONT.
--- NOTE | 2019-06-01 19:30 | NUR ---
Opening note received report on full code solo patient. patient trached and on trached colar 8L stating 100% spo2. bed locked and in lowest position. for more information see interventions.
--- NOTE | 2019-06-01 19:57 | NUR ---
received call back from chase Sarmiento np ordered r/t 12 ekg tachycardia 140's hold Apresoline and give metoprolol ivp 2.5mg x1.
[2019-06-01 20:00] VITALS: BP 147/86
[2019-06-01] MEDS ORDERED: METOPROLOL TARTRATE 1MG/1ML-5ML VIAL IV ONE (20:00)
[2019-06-01] MEDS: ACETAMINOPHEN 325 MG TAB PO PRN (20:46)
[2019-06-02] VITALS: BP 114/75
--- NOTE | 2019-06-02 | NUR ---
bed bath given flexiseal leaked and cull bed bath given. skin reassessed and no new break down noted.
[2019-06-02] MEDS ORDERED: ACETAMINOPHEN 650 mg PER 20 mL UD ONE (02:24)
[2019-06-02] MEDS: FREE WATER GT SCH ×6 (02:26→21:12)
[2019-06-02] MEDS: ACETAMINOPHEN 650 mg PER 20 mL UD PO PRN ×2 (02:41→21:13)
[2019-06-02 04:00] VITALS: BP 124/79
--- NOTE | 2019-06-02 05:01 | NUR ---
residual check 0ml residual
[2019-06-02] MEDS: CALCIUM ACETATE 667 MG CAP NG SCH (06:00)
[2019-06-02 06:26] LABS: Basophils # (auto) 0.1 uL; Eosinophils # (auto) 0.1 uL; Eosinophils % (auto) 1.3 % (0.0-7.0); Hematocrit 44.6 % (41.0-53.0); Hemoglobin 14.7 g/dL (13.5-17.5); Lymphocytes # (auto) 1.2 uL; Lymphocytes % (auto) 12.2 % (10.0-50.0); Mean Corpuscular Hemoglobin 32.4 pg (28.0-32.0); Mean Corpuscular Hgb Conc. 32.9 g/dL (32.0-36.0); Mean Corpuscular Volume 98.4 fL (80.0-100.0); Monocytes # (auto) 1.2 uL; Monocytes % (auto) 12.4 % (0.0-12.0); Neutrophils # (auto) 7.4 uL; Neutrophils % (auto) 73.1 % (37.0-80.0); Platelet Count (auto) 416 10^3/uL (140-450); Red Blood Cells 4.54 10^6/uL (4.5-5.90); Red Cell Distribution Width 13.4 % (11.8-14.3); White Blood Cell 10.1 10^3/uL (4.4-10.8)
[2019-06-02 06:44] LABS: Albumin 4.5 g/dL (3.4-5.0); Calcium 10.6 mg/dL (8.5-10.1); Potassium 4.8 mmol/L (3.5-5.1)
[2019-06-02 06:49] LABS: BUN/Creatinine Ratio 25.3; Bilirubin, Total 0.4 mg/dL (0.2-1.0); Total Protein 9.4 g/dL (6.4-8.2)
--- NOTE | 2019-06-02 07:30 | NUR ---
RECEIVED PATIENT SEMI FOWLERS BED, NON RESPONSIVE, WILL NOT FOLLOW COMMANDS, EYES ARE OPEN BUT NO TRACKING, LEFT HAND 20G, FLUSHED AND PATENT, THORNTON TO GRAVITY, FLEXI SEAL TO THE RECTUM, SCD'S TO THE LEFT LEG AND FOAM BOOT TO THE RT LEG, PATIENT HAS SIZE 8 SHILEY TO THE THROAT, O2 BY TRACH COLLAR 7L AND 28%, NO SIGNS OF DISTRESS PAIN
[2019-06-02 08:00] VITALS: BP 137/88
--- NOTE | 2019-06-02 08:30 | NUR ---
PATIENT HAS JEVITY INFUSING INTO THE LUQ PEG TUBE AT 65ML/HR BY THE FEEDING PUMP, NO RESIDUAL WHEN CHECKED
--- NOTE | 2019-06-02 09:10 | NUR ---
PATIENTS HEART RATE WENT UP TO 138 BY DIDN'T STAY, CAME BACK DOWN TO THE 103 RANGE
--- NOTE | 2019-06-02 09:18 | NUR ---
EXPLAIN MEDICATIONS TO THE PATIENT REGARDING THE DODGE,USAGE AND THE SIDE EFFECTS, EVEN THOUGH THE PATIENT DOESN'T UNDERSTAND AND MEDICATIONS GIVEN ORDERED Addendum: 06/02/19 at 1401 by Shasha Bennett RN CHANGE TIME TO 0951
[2019-06-02] MEDS: amLODIPine BESYLATE 5 MG TAB PO SCH (09:51)
[2019-06-02] MEDS: CARVEDILOL 3.125 MG TAB PO SCH (09:51)
--- NOTE | 2019-06-02 10:25 | NUR ---
FRIENDS IN TO VISIT WITH THE PATIENT
--- NOTE | 2019-06-02 10:50 | NUR ---
DR MACIAS IN TO SEE THE PATIENT
--- NOTE | 2019-06-02 11:02 | NUR ---
SISTER AND MOM IN TO SEE THE PATIENT
--- NOTE | 2019-06-02 11:25 | NUR ---
Nutrition Follow-up Notes Wt.: 64.5 kg today. Pt's s/p on vent via Trach, asleep, no immediate family member at bedside during rounds earlier. Pt's no signs of distress noted earlier, currently NPO with EN support with Glucerna 1.2 Benny 60 ml/hr via PEG tube providing 1728 kcal, 86 gms pro and 1159 ml free water, tolerates feeding, no residuals noted by RN this morning. Pt with adequate EN support d/t high initiation rate delivery of concentrated formula aeb current EN infusion meets 91% to 115% of est caloric needs and 114% to 143% of est protein needs. Est. Needs: 1500 kcal to 1900 kcal (25-30 kcal/kgBW), 60 gms to 76 gms pro (0.8-1.0 gms/kgBW). Will continue to monitor pertinent labs and reassess nutrient need prn Labs: Gluc 143 H, Na 151 H, Cl 117 H, BUN 60 H, Cr 2.37 H, Ca 10.6 H, AST 127 H, ALT 265 H, ALP 196 H Skin: Kenrick scale 12, high risk, pt's left buttocks MASD, Rt heel DTI, with multiple skin tears and blisters per RN doc. Pls refer to latest hhas's notes for details re: tx plans. GI: Pt had 1 BM this morning per clinical sociologist. PES: Increased nutrient needs r/t current chronic medical condition aeb intubated, sedated, ESRD for possible HD, sever hypoalbuminemia, NPO. Altered nutrition related lab values r/t current/chronic medical condition aeb hyperglycemia, hypernatremia, hyperkalemia, hyperchloremia, elev.renal labs, LFTs, hyperbilirubinemia, hypocalcemia and severe hypoalbuminemia Will continue to monitor NPO status, EN tolerance, skin status, pertinent labs and weight trend. F/u in 2 to 3 days. Rec.: 1.) If still NPO, continue EN support of Glucerna 1.2 Benny @ 60 ml/hr goal rate via PEG as tolerated. 2.) Consider daily MVI with minerals and Asc acid 500 mgs BID. 3.) Refer to RD for further nutrition educ. and weight monitoring upon discharge. 4.) Continue current plan of care.
[2019-06-02 12:00] VITALS: BP 126/86
--- NOTE | 2019-06-02 12:00 | NUR ---
FAMILY APPLYING LOTION TO THE PATIENT AND PRAYING OVER HIM
--- NOTE | 2019-06-02 12:30 | NUR ---
PATIENT SHOWS NO LEE OF DISTRESS
--- NOTE | 2019-06-02 12:50 | NUR ---
DR METZ IN TALKING WITH THE FAMILY USING THE RT TO TRANSLATE REGARDING THE POC FOR THE PATIENT
[2019-06-02] MEDS: hydrALAZINE HCL 10 MG TAB PO SCH (13:03)
--- NOTE | 2019-06-02 13:25 | NUR ---
FAMILY LEFT AFTER TALKING TO DR METZ
--- NOTE | 2019-06-02 14:04 | NUR ---
PATIENT SITTING UP IN THE BED , FEEDING CONTINUES, NO CHANGE CONDITION
--- NOTE | 2019-06-02 15:15 | NUR ---
NO CHANGE IN CONDITION, BREATHING TREATMENT BEING GIVEN
[2019-06-02 16:00] VITALS: BP 129/88
--- NOTE | 2019-06-02 16:30 | NUR ---
PATIENT SITTING UP IN BED, FAMILY BACK TO VISIT WITH THE PATIENT
--- NOTE | 2019-06-02 17:30 | NUR ---
SITTING UP IN BED, NO CHANGE IN CONDITION NO FAMILY IN THE ROOM
--- NOTE | 2019-06-02 18:12 | NUR ---
SISTER BACK AT THE BEDSIDE, NO CHANGE IN THE PATIENTS CONDITION, NON RESPONSIVE VERBALLY, WITHDRAWS TO PAIN, EYES WILL OPEN AND CLOSE, BUT NO TRACKING, PATIENT HAS A SIZE 8 SHILEY TRACH TO THE THROAT AND HAS TRACH COLLAR WITH O2 AT 7L AND 28%, PEG TUBE TO THE LUQ WITH JEVITY INFUSING AT 65ML/HR BY THE FEEDING PUMP, THORNTON TO GRAVITY, FLEXI SEAL TO THE RECTUM, FOAM BOOT TO THE RT LEG AND SCD TO THE LEFT LEG, SALINE LOCK TO THE LEFT HAND 20G FLUSHED AND PATENT, WILL CONTINUE TO MONITOR AND GIVE REPORT TO THE NEXT SHIFT, NO DISTRESS SEEN OR SIGNS OF PAIN
--- NOTE | 2019-06-02 19:19 | NUR ---
RT NOTE PT RECEIVED ON TRACH COLLAR. PT SPO2 98% ON 28% FIO2 CA, RR 16, CR 122. NO SIGNS OF RESP DISTRESS NOTED BY RT. FAMILY AT BEDSIDE.
[2019-06-02 19:48] VITALS: BP 126/89
--- NOTE | 2019-06-02 20:00 | NUR ---
SHIFT OPENING NOTE RECEIVED PATIENT LAYING IN BED WITH EYES OPEN. MOVES HEAD, BLINKS EYES, AND DOES NOT TRACK. ON TRACH COLLAR 7 L 28% FI02. POX 98. SUCTIONED CREAMY THICK SECRETIONS FROM TRACH. PEG TUBE INFUSING JEVITY AT 65 ML/H, 5 ML OF RESIDUALS NOTED. FLEXISEAL IN PLACE DRAINING STOOL. THORNTON CATH IN PLACE DRAINING YELLOW URINE TO GRAVITY. LEFT HAND 20G SALINE LOCKED. PHYSICAL ASSESSMENT COMPLETED, SEE INTERVENTIONS. WILL CLOSELY MONITOR.
[2019-06-02] MEDS: CARVEDILOL 12.5 MG TAB PO SCH (21:12)
--- NOTE | 2019-06-02 22:17 | NUR ---
RT NOTE PT STILL TOLERATING TRACH COLLAR WELL. SPO2 98% ON 28% FIO2, CR 93, 16. NO SIGNS OF RESP DISTRESS NOTED BY RT.
[2019-06-03] VITALS (7 sets, daily range): BP systolic 120–139; BP diastolic 41–89
--- NOTE | 2019-06-03 00:20 | NUR ---
MORNING HYGIENE CARE FULL BED BATH PERFORMED USING CHG WIPES. GOWN CHANGED. PARTIAL LINEN CHANGED. THORNTON CARE DONE. PATIENT REPOSITIONED FOR COMFORT. TOLERATED IT WELL.
[2019-06-03] MEDS: FREE WATER GT SCH ×5 (02:23→18:00)
[2019-06-03 05:45] LABS: BUN/Creatinine Ratio 28.2; Calcium 10.2 mg/dL (8.5-10.1); Potassium 4.6 mmol/L (3.5-5.1)
--- NOTE | 2019-06-03 07:10 | NUR ---
END OF SHIFT REPORT GIVEN AND CARE ENDORSED TO CHANO DUMONT.
--- NOTE | 2019-06-03 07:30 | NUR ---
RECEIVED PATIENT SEMI FOWLERS IN BED, PATIENT IS NON RESPONSIVE, O2 BY THE TRACH COLLAR AT 28% AND 7L, PATIENT HAS A SIZE 8 SHILEY TRACH TO THE THROAT, THORNTON TO GRAVITY , RECTAL TUBE TO THE RECTUM, LEFT LEG WITH SCD AND RT WITH FOAM BOOT, LEFT HAND WITH 20G SALINE LOCK FLUSHED AND PATENT, JEVITY AT 65ML/HR INFUSING BY THE FEEDING PUMP INTO THE LUQ PEG TUBE, NO SIGNS OF PAIN OR DISTRESS
--- NOTE | 2019-06-03 07:30 | NUR ---
RECEIVED PT ON TRACH COLLAR AT 28% AT 6LPM. PT IS AWAKE. BS ARE CLEAR/DIMINISHED, RR 16, HR 95, BP 139/93 SP02 98%. NO SX NEEDED. WATER CHANGED. NO RESPIRATORY DISTRESS NOTED.
--- NOTE | 2019-06-03 08:30 | NUR ---
NO CHANGE IN CONDITION, JEVITY INFUSING INTO THE PEG TUBE AT 65ML/HR BY THE FEEDING PUMP
[2019-06-03] MEDS ORDERED: ALBUTEROL SULF 2.5 MG/0.5ML(0.5%) NEB SOLN NEB PRN (09:15)
[2019-06-03] MEDS ORDERED: IPRATROPIUM BROM 0.5 MG/2.5ML INH SOL NEB PRN (09:15)
--- NOTE | 2019-06-03 09:50 | NUR ---
DR METZ INTO SEE THE PATIENT AND WROTE FOR D/C TO LTAC
[2019-06-03] MEDS: CARVEDILOL 12.5 MG TAB PO SCH (09:56)
--- NOTE | 2019-06-03 09:56 | NUR ---
EXPLAIN MEDICATIONS TO THE PATIENT EVEN THOUGH HE CAN'T RESPOND AND MEDS GIVEN ORDERED
[2019-06-03] MEDS: amLODIPine BESYLATE 5 MG TAB PO SCH (09:57)
[2019-06-03] MEDS ORDERED: OMEPRAZOLE 20MG/10ML ORAL SUSP GT ONE (10:15)
--- NOTE | 2019-06-03 10:23 | NUR ---
AND FRIEND INTO VISIT WITH THE PATIENT
--- NOTE | 2019-06-03 11:26 | NUR ---
STILL AT THE BEDSIDE, NO CHANGE IN CONDITION
--- NOTE | 2019-06-03 12:09 | NUR ---
FAMILY STILL AT THE BEDSIDE NO CHANGE IN CONDITION
--- NOTE | 2019-06-03 12:51 | NUR ---
FAMILY WENT OUT ,NO CHANGE IN PATIENTS CONDITION
--- NOTE | 2019-06-03 13:35 | NUR ---
RT FERRARA, DOING TRACH CARE
--- NOTE | 2019-06-03 14:30 | NUR ---
KIANA IN TALKING WITH THE FAMILY AGAIN
[2019-06-03] MEDS: Jevity 1.2 Cal/Fiber 1 Liter GT SCH (15:40)
--- NOTE | 2019-06-03 15:40 | NUR ---
NO CHANGE IN THE CONDITION PER DR METZ SHE HAS SPOKE TO THE FAMILY A NUMBER OF TIMES REGARDING THE PATIENTS PROGNOSIS
--- NOTE | 2019-06-03 15:47 | NUR ---
PT ON CA ON 5LPM AT 28% FIO2 WITH SPO2 99%, RR 14, HR 100 COLETTE. WELL. WILL CONTINUE TO MONITOR PT.
--- NOTE | 2019-06-03 16:46 | NUR ---
PATIENT MAY BE LEAVING TONIGHT GOING TO [facility] IN [place] [phone]
--- NOTE | 2019-06-03 17:10 | NUR ---
SPOKE TO REGARDING THE TRANSFER AND SHE IS AWARE
--- NOTE | 2019-06-03 17:37 | NUR ---
Discharge planning per consult, patient has orders to dc to [facility]. Referral was sent to multiple facilities. [facility] [phone] in [place] has agreed to accept this patient into room 413 bed B, under Dr. Damon, per [facility] admission rep. Obtained next of kin information as Hamlet(uncle) at [address] [place] [address]; [phone] is his phone number. Transportation was arranged with [facility] with a nurse to accompany patient in route;advised of trach collar on 5L, deep suctioning, ALC, and IV hep lock in place. Scheduled pickle sorter time is between 6:30-7pm per [facility] at [facility]. Attending nurse Lauren-RN and family were advised of dc plan. Addendum: 06/03/19 at 1749 by MIRA MCWILLIAMS Amended: Links added.
--- NOTE | 2019-06-03 17:45 | NUR ---
PEG TUBE FEEDING STOPPED , PICTURES TAKEN OF THE PATIENTS WOUNDS AND FLEXI SEAL BAG CHANGED
--- NOTE | 2019-06-03 18:30 | NUR ---
SIGNED INFORMATION PACKET GIVEN TO HER, PATIENT FEEDING HAS BEEN TURNED OFF FOR THE TRANSPORT, FLEXI SEAL TO THE RECTUM, THORNTON TO [facility], O2 AT 7L BY THE TRACH COLLAR, WAITING TO BE PICKED UP FOR TRANSFER WILL CONTINUE TO MONITOR AND GIVE REPORT TO THE NEXT SHIFT
--- NOTE | 2019-06-03 18:45 | NUR ---
REPORT CALLED TO [facility] SPOKE WITH SHARI MERAZ RN AND GAVE REPORT
--- NOTE | 2019-06-03 20:00 | NUR ---
SHIFT OPENING NOTE RECEIVED PATIENT LAYING IN BED WITH EYES OPEN. MOVES HEAD, BLINKS EYES, AND DOES NOT TRACK. ON TRACH COLLAR 7 L 28% FI02. POX 100%. PEG TUBE CLAMPED. FLEXISEAL IN PLACE DRAINING STOOL. TOHRNTON CATH IN PLACE DRAINING YELLOW URINE TO GRAVITY. LEFT HAND 20G SALINE LOCKED. PHYSICAL ASSESSMENT COMPLETED, SEE INTERVENTIONS. WILL CLOSELY MONITOR. AWAITING [facility] TRANSPORT TO TAKE PATIENT TO [facility].
--- NOTE | 2019-06-03 20:10 | NUR ---
FAMILY AT BEDSIDE VISITING
--- NOTE | 2019-06-03 21:38 | NUR ---
PATIENT DISCHARGED TO [facility] TRANSFERRED [facility]. REPORT GIVEN TO [facility], PACKET GIVEN. FAMILY AT BEDSIDE AND AWARE OF THE TRANSFER. ALL BELONGINGS TAKEN WITH [facility] AND FAMILY.
[2019-06-04] MEDS ORDERED: OMEPRAZOLE 20MG/10ML ORAL SUSP GT SCH (10:00)
== END 2019-06-03 21:45 | DRG 5 ==
LOC: ER 20:52 → EDBD 20:52 → TELE 20:53 → ICU WEST 23:26 → DOU IN ICU 05-29 19:38
PROVIDERS: ADMIT Nurse Practitioner; ATTEND Internal Medicine
PROC: 02HV33Z Insertion of Infusion Device into Superior Vena Cava, Percutaneous Approach (ICD-10-PCS; principal; 2019-05-15)
PROC: 5A1955Z Respiratory Ventilation, Greater than 96 Consecutive Hours (ICD-10-PCS; 2019-05-15)
PROC: 0BH17EZ Insertion of Endotracheal Airway into Trachea, Via Natural or Artificial Opening (ICD-10-PCS; 2019-05-15)
PROC: B246ZZ4 Ultrasonography of Right and Left Heart, Transesophageal (ICD-10-PCS; 2019-05-25)
PROC: 0DB68ZX Excision of Stomach, Via Natural or Artificial Opening Endoscopic, Diagnostic (ICD-10-PCS; 2019-05-27)
PROC: 0DH63UZ Insertion of Feeding Device into Stomach, Percutaneous Approach (ICD-10-PCS; 2019-05-27)
PROC: 0B110F4 Bypass Trachea to Cutaneous with Tracheostomy Device, Open Approach (ICD-10-PCS; 2019-05-27 13:13)
DX: A41.9 Sepsis, unspecified organism (principal); G93.6 Cerebral edema; I21.A1 Myocardial infarction type 2; I63.9 Cerebral infarction, unspecified; E43 Unspecified severe protein-calorie malnutrition; K72.00 Acute and subacute hepatic failure without coma; J69.0 Pneumonitis due to inhalation of food and vomit; G92 Toxic encephalopathy; D69.6 Thrombocytopenia, unspecified; E83.39 Other disorders of phosphorus metabolism; J96.01 Acute respiratory failure with hypoxia; E83.51 Hypocalcemia; N17.0 Acute kidney failure with tubular necrosis; G93.1 Anoxic brain damage, not elsewhere classified; E87.0 Hyperosmolality and hypernatremia; E83.52 Hypercalcemia; E87.6 Hypokalemia; F10.129 Alcohol abuse with intoxication, unspecified; J15.0 Pneumonia due to Klebsiella pneumoniae; F15.129 Other stimulant abuse with intoxication, unspecified; K29.70 Gastritis, unspecified, without bleeding; M62.82 Rhabdomyolysis; J32.0 Chronic maxillary sinusitis; I12.9 Hypertensive chronic kidney disease with stage 1 through stage 4 chronic kidney disease, or unspecified chronic kidney disease; N18.9 Chronic kidney disease, unspecified; R65.21 Severe sepsis with septic shock; Z68.24 Body mass index [BMI] 24.0-24.9, adult; Z66 Do not resuscitate; Z79.02 Long term (current) use of antithrombotics/antiplatelets; Z79.82 Long term (current) use of aspirin; Z99.11 Dependence on respirator [ventilator] status
CPT/HCPCS: 31500; 36415; 36600; 43239; 51702; 70450; 71045; 76705; 76775; 80048; 80053; 80061; 80076; 80202; 80307; 80320; 81001; 82550; 82553; 82570; 82805; 82962; 83036; 83605; 83735; 83874; 84100; 84132; 84156; 84300; 84484; 84550; 85007; 85025; 85027; 85384; 85610; 85730; 86803; 86850; 86900; 86901; 87040; 87070; 87077; 87081; 87186; 87205; 87340; 87493; 93005; 93306; 93312; 93886; 94002; 94003; 94640; 94761; 94762; 95819; 96365; 96366; 96367; 99291; A4605; A4618; C9113; G0378; J0610; J0696; J2001; J2250; J2543; J2704; J3480; J3490; P9047